=== PATIENT | female | born 1965 | race Caucasian/White ===

== ENCOUNTER 2016-10-27 10:33 | Emergency (ER) | payer BC ==
--- NOTE | 2016-10-27 10:42 | ER Document Report ---
ED Medical Screen (RME) - General Chief Complaint: Flank Pain Stated Complaint: URINARY SYMPTOMS Time seen by provider: 10:40 Mode of Arrival: Ambulatory Information source: Patient Notes: 51-year-old female presents to ED for urinary symptoms. She states she started with burning a couple days ago. She states she has a lot a urinary problems and does self-catheterization. Her last catheterization was last night was not able to get urine this morning. I have greeted and performed a rapid initial assessment of this patient. A comprehensive ED assessment and evaluation of the patient, analysis of test results and completion of medical decision making process will be conducted by an additional ED providers. TRAVEL OUTSIDE OF THE [place] IN LAST 30 DAYS: No - Related Data Allergies/Adverse Reactions: amoxicillin trihydrate [From Augmentin] Allergy (Severe, Verified 07/28/16 09:00 ) severe migraine latex [Latex] Allergy (Severe, Verified 07/28/16 09:00) Blisters Potassium Clavulanate * [From Augmentin] Allergy (Severe, Verified 07/28/16 09: 00) severe migraine magnesium sulfate [Magnesium Sulfate] Allergy (Intermediate, Verified 07/28/16 09:00) panic, nervousness, skin crawling dexamethasone [From Decadron] Allergy (Mild, Verified 07/28/16 09:00) burning in bladder, skin itching Iodinated Contrast Media - Oral and [IV Dye, Iodine Containing] Allergy (Mild, Verified 07/28/16 09:00) Hives prochlorperazine edisylate [From Compazine] Allergy (Mild, Verified 07/28/16 09: 00) makes heart race Vltrkhg-Ufj-Add Reductase Inhibitor Allergy (Mild, Verified 07/28/16 09:00) muscle pain and increased creatinine Fkuftmyq-1-UN8 Antimigraine Agents Allergy (Mild, Verified 07/28/16 09:00) makes heart race Past Medical History - Past Medical History Cardiac Medical History: Denies: Hx Coronary Artery Disease, Hx Heart Attack, Hx Hypertension Pulmonary Medical History: Reports: Hx Asthma - CHILD, Hx Pneumonia - HX Denies: Hx Bronchitis, Hx COPD Neurological Medical History: Reports: Hx Migraine. Denies: Hx Cerebrovascular Accident, Hx Seizures Renal/ Medical History: Reports: Hx Kidney Stones Musculoskeltal Medical History: Denies Hx Arthritis, Reports Hx Musculoskeletal Deformity, Reports Hx Musculoskeletal Trauma Traumatic Medical History: Reports: Hx Fractures Past Surgical History: Reports: Hx Appendectomy, Hx Section, Hx Genitourinary Surgery - bladder and ureter reimplantation, Hx Orthopedic Surgery - bunion - Immunizations Immunizations up to date: Yes Hx Diphtheria, Pertussis, Tetanus Vaccination: Yes
--- NOTE | 2016-10-27 11:02 | ER Document Report ---
ED General - General Chief Complaint: Flank Pain Stated Complaint: URINARY SYMPTOMS Time seen by provider: 10:59 Mode of Arrival: Ambulatory Information source: Patient Notes: 51-year-old female who reports a history of neurogenic bladder and self catheterizes 5-6 times a day. She has a machine at home that she uses to check her urine for UTIs and says this been reading positive for nitrites past 2 days. This morning she has been unable to catheterize herself and has considerable urinary urgency as well as bilateral lower abdominal pain and mid back pain which she says is consistent with what she's had in the past with urinary tract infections and pyelonephritis. She also reports that in the past she's had kidney stones to produced back pain similar to this. He reports her urologist is Dr. Solo Swann who previously was in [place] now is in [facility]. She reports she's been told in the future she continues to have problems he may have to have her bladder removed. She reports she was on 20 days of Bactrim over September but is not on antibiotics at the moment. She denies fever, chills, nausea, vomiting, chest pain, or syncope. Physical Exam: General: Alert, appears uncomfortable HEENT: Normocephalic. Atraumatic. PERRLA. Extraocular movements intact. Oropharynx clear. Neck: Supple. Non-tender. Respiratory: No respiratory distress. Clear and equal breath sounds bilaterally. Cardiovascular: Regular rate and rhythm. Abdominal: Normal Inspection. Soft, moderate bilateral lower abdominal and suprapubic tenderness. No distension. Normal Bowel Sounds. Back: Positive bilateral CVA tenderness. No deformity or step off. Extremities: Moves all four extremities. Upper extremities: Normal inspection. Non-tender. Normal color. Normal ROM. Normal temperature. Lower extremities: Normal inspection. Non-tender. No edema. Normal color. Normal ROM. Normal temperature. Neurological: Speech clear mentation normal patient reports decreased light touch sensation to the right hand Psychological: Normal affect. Normal Mood. Skin: Warm. Dry. Normal color. TRAVEL OUTSIDE OF THE [place] IN LAST 30 DAYS: No - Related Data Allergies/Adverse Reactions: amoxicillin trihydrate [From Augmentin] Allergy (Severe, Verified 07/28/16 09:00 ) severe migraine latex [Latex] Allergy (Severe, Verified 07/28/16 09:00) Blisters Potassium Clavulanate * [From Augmentin] Allergy (Severe, Verified 07/28/16 09: 00) severe migraine magnesium sulfate [Magnesium Sulfate] Allergy (Intermediate, Verified 07/28/16 09:00) panic, nervousness, skin crawling dexamethasone [From Decadron] Allergy (Mild, Verified 07/28/16 09:00) burning in bladder, skin itching Iodinated Contrast Media - Oral and [IV Dye, Iodine Containing] Allergy (Mild, Verified 07/28/16 09:00) Hives prochlorperazine edisylate [From Compazine] Allergy (Mild, Verified 07/28/16 09: 00) makes heart race Pplewmj-Efp-Ngq Reductase Inhibitor Allergy (Mild, Verified 07/28/16 09:00) muscle pain and increased creatinine Imerazdu-7-UU9 Antimigraine Agents Allergy (Mild, Verified 07/28/16 09:00) makes heart race Past Medical History - General Information source: Patient - Social History Smoking Status: Never Smoker Family History: Arthritis, CAD, DM, Hyperlipidemia, Hypertension, Malignancy Patient has suicidal ideation: No Patient has homicidal ideation: No - Past Medical History Cardiac Medical History: Denies: Hx Coronary Artery Disease, Hx Heart Attack, Hx Hypertension Pulmonary Medical History: Reports: Hx Asthma - CHILD, Hx Pneumonia - HX Denies: Hx Bronchitis, Hx COPD Neurological Medical History: Reports: Hx Migraine. Denies: Hx Cerebrovascular Accident, Hx Seizures Renal/ Medical History: Reports: Hx Kidney Stones. Denies: Hx Peritoneal Dialysis Musculoskeltal Medical History: Denies Hx Arthritis, Reports Hx Musculoskeletal Deformity, Reports Hx Musculoskeletal Trauma Traumatic Medical History: Reports: Hx Fractures Past Surgical History: Reports: Hx Appendectomy, Hx Section, Hx Genitourinary Surgery - bladder and ureter reimplantation, Hx Orthopedic Surgery - bunion - Immunizations Immunizations up to date: Yes Hx Diphtheria, Pertussis, Tetanus Vaccination: Yes Review of Systems - Review of Systems Constitutional: See HPI EENT: denies: Ear pain, Throat pain Cardiovascular: denies: Chest pain Respiratory: denies: Cough, Short of breath Gastrointestinal: See HPI Genitourinary: See HPI Musculoskeletal: See HPI Hematologic/Lymphatic: denies: Swollen glands Neurological/Psychological: denies: Weakness Physical Exam - Vital signs Vitals: Temp Pulse Resp BP Pulse Ox 98.7 F 125 H 20 135/109 H 99 10/27/16 10:39 10/27/16 10:39 10/27/16 10:39 10/27/16 10:39 10/27/16 10:39 Course - Re-evaluation Re-evalutation: 10/27/16 12:46 Patient has evidence for urinary tract infection but no evidence for sepsis or bacteremia. Patient reports Cipro and Bactrim of both worked well for UTIs in the past and says she just finished Bactrim [place] is Cipro for this. There is no hydronephrosis on CT scan and the punctate stones identified a believe her chronic finding her. She was discharged on Cipro 500 mg by mouth twice a day and instructed to follow with her urologist Dr. Swann within one week or return to emergency department for fever over 100.4 vomiting worse pain or other problems as well as other indications for admission. - Vital Signs Vital signs: Temp Pulse Resp BP Pulse Ox 98.7 F 123 H 20 135/109 H 99 10/27/16 10:43 10/27/16 10:43 10/27/16 10:43 10/27/16 10:43 10/27/16 10:43 - Laboratory Result Diagrams: 10/27/16 11:20 10/27/16 11:20 Laboratory results interpreted by me: 10/27/16 10/27/16 10/27/16 11:20 11:20 11:20 RDW 14.1 H Potassium 3.5 L Urine Blood SMALL H Urine Nitrite POSITIVE H Ur Leukocyte Esterase LARGE H - Diagnostic Test Radiology reviewed: Reports reviewed Discharge - Discharge Clinical Impression: Neurogenic bladder UTI (urinary tract infection) Qualifiers: Urinary tract infection type: acute cystitis Hematuria presence: with hematuria Qualified Code(s): N30.01 - Acute cystitis with hematuria Condition: Stable Disposition: HOME, SELF-CARE Additional Instructions: Urinary Tract Infection Your evaluation indicates that you have a urinary tract infection. This is due to germs growing in the bladder. This is a common problem. This infection usually responds quickly to antibiotics. Your antibiotic should be taken exactly as prescribed. Drink plenty of fluids -- three to four quarts a day. Occasionally, a bladder anesthetic will be prescribed to help stop the feeling of urgency until the antibiotic has a chance to clear the infection. This may cause your urine to be dark orange. Certain urine infections require a culture. If the doctor obtained a culture, the results will be back in two days. You should call to see if a change in treatment is needed. A repeat urinalysis after you finish treatment is often recommended. The physician will let you know if further testing is required. Call the doctor if you develop fever, chills, flank pain, inability to urinate, or blood in the urine. See your urologist within one week for recheck Return to emergency department for vomiting, fever over 100.4, or other problems Prescriptions: Ciprofloxacin HCl [Cipro 500 mg Tablet] 500 mg PO BID #20 tablet Referrals: NOVA SIMMS MD [Primary Care Provider] - Follow up as needed
[2016-10-27 11:51] LABS: ABSOLUTE EOSINOPHILS # (AUTO) 0.2 10^3/uL (0.0-0.6); ABSOLUTE LYMPHOCYTES (AUTO) 1.7 10^3/uL (0.5-4.7); ABSOLUTE MONOCYTES (AUTO) 0.5 10^3/uL (0.1-1.4); ABSOLUTE NEUT (AUTO) 5.9 10^3/uL (1.7-8.2); BASOPHILS % (AUTO) 0.5 % (0-2); EOSINOPHILS % (AUTO) 2.2 % (0-6); HEMATOCRIT 38.2 % (36.0-47.0); HEMOGLOBIN 12.3 g/dL (12.0-15.5); HGB HCT DIFFERENCE -1.3; MEAN CORPUSCULAR HEMOGLOBIN 28.8 pg (27.0-33.4); MEAN CORPUSCULAR HGB CONC 32.2 g/dL (32.0-36.0); MEAN CORPUSCULAR VOLUME 89 fl (80-97); MONOCYTES % (AUTO) 6.1 % (3-13); RED BLOOD COUNT 4.27 10^6/uL (3.72-5.28); RED CELL DISTRIBUTION WIDTH 14.1 % (11.5-14.0); SEGMENTED NEUTROPHILS % (AUTO) 71.2 % (42-78)
[2016-10-27 11:53] LABS: WHITE BLOOD COUNT 8.3 10^3/uL (4.0-10.5)
[2016-10-27] MEDS ORDERED: NORMAL SALINE 1000 ML 1,000 ML IV ONE (11:53)
[2016-10-27 12:00] LABS: APPEARANCE,URINE CLOUDY; BILIRUBIN,URINE NEGATIVE (NEGATIVE); GLUCOSE, URINE NEGATIVE (NEGATIVE); KETONES,URINE NEGATIVE (NEGATIVE); LEUKOCYTE ESTERASE,URINE LARGE (NEGATIVE); NITRITE,URINE POSITIVE (NEGATIVE); PROTEIN,URINE NEGATIVE (NEGATIVE); URINE SPECIFIC GRAVITY 1.004; UROBILINOGEN,URINE NEGATIVE mg/dL (<2.0)
[2016-10-27 12:14] LABS: ALANINE AMINOTRANSFERASE 36 U/L (9-52); ALBUMIN 4.9 g/dL (3.5-5.0); ALKALINE PHOSPHATASE 83 U/L (38-126); ANION GAP 15 (5-19); ASPARTATE AMINO TRANSFERASE 33 U/L (14-36); BILIRUBIN,TOTAL 0.4 mg/dL (0.2-1.3); BLOOD UREA NITROGEN 13 mg/dL (7-20); CARBON DIOXIDE 27 mmol/L (22-30); CHLORIDE 103 mmol/L (98-107); CREATININE RESULT 0.74 mg/dL (0.52-1.25); GLUCOSE 95 mg/dL (75-110); POTASSIUM 3.5 mmol/L (3.6-5.0); SODIUM 144.6 mmol/L (137-145); TOTAL PROTEIN 7.6 g/dL (6.3-8.2)
[2016-10-27 13:26] VITALS: BP 123/94
== END 2016-10-27 13:26 | disposition home or self-care (01) ==
LOC: ER 10:33
DX: N31.9 Neuromuscular dysfunction of bladder, unspecified (principal); N30.01 Acute cystitis with hematuria; R10.9 Unspecified abdominal pain
CPT/HCPCS: 36415; 74176; 80053; 81001; 83605; 84703; 85025; 87086; 87088; 87186; 99284

== ENCOUNTER 2016-11-10 19:40 | Emergency (ER) | payer BC ==
[2016-11-10] MEDS ORDERED: NORMAL SALINE 1000 ML 1,000 ML IV PRN (19:59)
--- NOTE | 2016-11-10 19:59 | ER Document Report ---
[id number] Information source: Patient Notes: 51-year-old female presents after syncopal episode just prior to arrival. Patient had been started on losartan, noted she has not been feeling well over the past 2 days that she's been taking the medication. EMS found patient hypotensive on arrival Patient admits to hip pain back pain neck pain TRAVEL OUTSIDE OF THE [place] IN LAST 30 DAYS: No - HPI Onset: Just prior to arrival Onset/Duration: Sudden Quality of pain: Achy Severity: Mild Pain Level: 1 Associated symptoms: Body/muscle aches, Other Exacerbated by: Movement Relieved by: Denies Similar symptoms previously: No Recently seen / treated by doctor: Yes - Related Data Allergies/Adverse Reactions: amoxicillin trihydrate [From Augmentin] Allergy (Severe, Verified 07/28/16 09:00 ) severe migraine latex [Latex] Allergy (Severe, Verified 07/28/16 09:00) Blisters Potassium Clavulanate * [From Augmentin] Allergy (Severe, Verified 07/28/16 09: 00) severe migraine magnesium sulfate [Magnesium Sulfate] Allergy (Intermediate, Verified 07/28/16 09:00) panic, nervousness, skin crawling dexamethasone [From Decadron] Allergy (Mild, Verified 07/28/16 09:00) burning in bladder, skin itching Iodinated Contrast Media - Oral and [IV Dye, Iodine Containing] Allergy (Mild, Verified 07/28/16 09:00) Hives prochlorperazine edisylate [From Compazine] Allergy (Mild, Verified 07/28/16 09: 00) makes heart race Xwegycg-Yvy-Zzz Reductase Inhibitor Allergy (Mild, Verified 07/28/16 09:00) muscle pain and increased creatinine Kmusotdz-4-PA5 Antimigraine Agents Allergy (Mild, Verified 07/28/16 09:00) makes heart race Past Medical History - Social History Smoking Status: Never Smoker Cigarette use (# per day): No Chew tobacco use (# tins/day): No Smoking Education Provided: No Family History: Arthritis, CAD, DM, Hyperlipidemia, Hypertension, Malignancy - Past Medical History Cardiac Medical History: Denies: Hx Coronary Artery Disease, Hx Heart Attack, Hx Hypertension Pulmonary Medical History: Reports: Hx Asthma - CHILD, Hx Pneumonia - HX Denies: Hx Bronchitis, Hx COPD Neurological Medical History: Reports: Hx Migraine. Denies: Hx Cerebrovascular Accident, Hx Seizures Renal/ Medical History: Reports: Hx Kidney Stones. Denies: Hx Peritoneal Dialysis Musculoskeltal Medical History: Denies Hx Arthritis, Reports Hx Musculoskeletal Deformity, Reports Hx Musculoskeletal Trauma Traumatic Medical History: Reports: Hx Fractures Past Surgical History: Reports: Hx Appendectomy, Hx Section, Hx Genitourinary Surgery - bladder and ureter reimplantation, Hx Orthopedic Surgery - bunion - Immunizations Immunizations up to date: Yes Hx Diphtheria, Pertussis, Tetanus Vaccination: Yes Review of Systems - Review of Systems Notes: REVIEW OF SYSTEMS: CONSTITUTIONAL : Denies fever, chills, or sweats. Denies recent illness. EENT: Denies eye, ear, throat, or mouth pain or symptoms. Denies nasal or sinus congestion or discharge. Denies throat, tongue, or mouth swelling or difficulty swallowing. CARDIOVASCULAR: Denies chest pain. Denies palpitations or racing or irregular heart beat. Denies ankle edema. RESPIRATORY: Denies cough, cold, or chest congestion. Denies shortness of breath, difficulty breathing, or wheezing. GASTROINTESTINAL: Denies abdominal pain or distention. Denies nausea, vomiting , or diarrhea. Denies blood in vomitus, stools, or per rectum. Denies black, tarry stools. Denies constipation. GENITOURINARY: Denies difficulty urinating, painful urination, burning, frequency, blood in urine, or discharge. FEMALE GENITOURINARY: Denies vaginal bleeding, heavy or abnormal periods, irregular periods. Denies vaginal discharge or odor. MUSCULOSKELETAL: Admits to neck back and hip pain SKIN: Denies rash, lesions or sores. HEMATOLOGIC : Denies easy bruising or bleeding. LYMPHATIC: Denies swollen, enlarged glands. NEUROLOGICAL: Admits to syncope PSYCHIATRIC: Denies anxiety or stress. Denies depression, suicidal ideation, or homicidal ideation. ALL OTHER SYSTEMS REVIEWED AND NEGATIVE. Dictation was performed using [employer] voice recognition software PHYSICAL EXAMINATION: GENERAL: Well-appearing, well-nourished and in no acute distress. HEAD: Atraumatic, normocephalic. EYES: Pupils equal round and reactive to light, extraocular movements intact, conjunctiva are normal. ENT: Nares patent, oropharynx clear without exudates. Moist mucous membranes. NECK: Normal range of motion, supple without lymphadenopathy LUNGS: Breath sounds clear to auscultation bilaterally and equal. No wheezes rales or rhonchi. HEART: Regular rate and rhythm without murmurs ABDOMEN: Soft, nontender, nondistended abdomen. No guarding, no rebound. No masses appreciated. Female : deferred Musculoskeletal: No step-off no deformity noted tenderness and the T 10-11 region NEUROLOGICAL: Cranial nerves grossly intact. Normal speech, normal gait. Normal sensory, motor exams PSYCH: Normal mood, normal affect. SKIN: Warm, Dry, normal turgor, no rashes or lesions noted. Course - Re-evaluation Re-evalutation: 11/10/16 21:28 Imaging has been ordered, patient otherwise appears well, she has been bolused fluids and I believe her issue is secondary to her losartan which I have insisted that she stop 11/11/16 00:36 ct result is consistent with a T12 compression fracture, patient will be given orthopedic follow-up and pain control Patient will require MRI at some point to evaluate for the thoracic and lumbar spines and family has been made very aware of this 11/11/16 01:17 After performing a Medical Screening Examination, I estimate there is LOW risk for EXPANDING OR RUPTURED ABDOMINAL AORTIC ANEURYSM, CAUDA EQUINA SYNDROME, EPIDURAL MASS LESION, or HERNIATED DISK CAUSING SEVERE SPINAL STENOSIS, thus I consider the discharge disposition reasonable. The patient and I have discussed the diagnosis and risks, and we agree with discharging home and close follow-up. We also discussed returning to the Emergency Department immediately if new or worsening symptoms occur with the understanding that symptoms and presentations can change. We have discussed the symptoms which are most concerning (e.g., saddle anesthesia, urinary or bowel incontinence or retention , changing or worsening pain) that necessitate immediate return. 11/11/16 01:19 - Laboratory Result Diagrams: 11/10/16 23:15 11/10/16 23:15 Laboratory results interpreted by me: 11/10/16 11/10/16 11/10/16 23:14 23:15 23:15 Hgb 11.7 L Hct 35.3 L Sodium 145.1 H Est GFR (Non-Af Amer) 56 L POC Glucose 111 H - Diagnostic Test Radiology reviewed: Image reviewed, Reports reviewed Discharge - Discharge Clinical Impression: Syncope and collapse Hypotension Qualifiers: Hypotension type: unspecified hypotension type Qualified Code(s): I95.9 - Hypotension, unspecified T12 compression fracture Qualifiers: Encounter type: initial encounter Qualified Code(s): M48.54XA - Collapsed vertebra, not elsewhere classified, thoracic region, initial encounter for fracture Condition: Stable Disposition: HOME, SELF-CARE Instructions: Compression Fracture of the Spine ([facility]) Additional Instructions: Please follow-up with your physicians for reevaluation of the compression fracture including possible MRI imaging of the thoracic and lumbar spines for further evaluation Prescriptions: Hydromorphone HCl [Dilaudid 2 mg Tablet] 2 mg PO Q4HP PRN #30 tablet PRN Reason: Referrals: LNIDA JOHN PA [Primary Care Provider] - Follow up as needed GWYN ESQUIVEL MD [ACTIVE STAFF] - Follow up tomorrow
[2016-11-10] MEDS ORDERED: MORPHINE SULFATE 10 MG/ML INJ IV ONE ×2 (20:27→23:09)
[2016-11-10 23:15] LABS: APPEARANCE,URINE CLEAR; BILIRUBIN,URINE NEGATIVE (NEGATIVE); GLUCOSE, URINE NEGATIVE (NEGATIVE); KETONES,URINE NEGATIVE (NEGATIVE); LEUKOCYTE ESTERASE,URINE NEGATIVE (NEGATIVE); NITRITE,URINE NEGATIVE (NEGATIVE); PROTEIN,URINE NEGATIVE (NEGATIVE); URINE SPECIFIC GRAVITY 1.006; UROBILINOGEN,URINE NEGATIVE mg/dL (<2.0)
[2016-11-10 23:54] LABS: ABSOLUTE EOSINOPHILS # (AUTO) 0.2 10^3/uL (0.0-0.6); ABSOLUTE LYMPHOCYTES (AUTO) 1.2 10^3/uL (0.5-4.7); ABSOLUTE MONOCYTES (AUTO) 0.3 10^3/uL (0.1-1.4); ABSOLUTE NEUT (AUTO) 3.3 10^3/uL (1.7-8.2); BASOPHILS % (AUTO) 0.6 % (0-2); EOSINOPHILS % (AUTO) 3.4 % (0-6); HEMATOCRIT 35.3 % (36.0-47.0); HEMOGLOBIN 11.7 g/dL (12.0-15.5); HGB HCT DIFFERENCE -0.2; LYMPHOCYTES % (AUTO) 24.8 % (13-45); MEAN CORPUSCULAR HEMOGLOBIN 29.5 pg (27.0-33.4); MEAN CORPUSCULAR HGB CONC 33.1 g/dL (32.0-36.0); MEAN CORPUSCULAR VOLUME 89 fl (80-97); MONOCYTES % (AUTO) 6.1 % (3-13); RED BLOOD COUNT 3.97 10^6/uL (3.72-5.28); RED CELL DISTRIBUTION WIDTH 13.5 % (11.5-14.0); SEGMENTED NEUTROPHILS % (AUTO) 65.1 % (42-78)
[2016-11-10 23:56] LABS: VENOUS BLOOD BASE EXCESS 1.6 mmol/L; VENOUS BLOOD HCO3 28.8 mmol/L (20-32); VENOUS BLOOD PCO2 57.2 mmHg (35-63); VENOUS BLOOD PH 7.32 (7.30-7.42)
[2016-11-11] LABS: PROTHROMBIN TIME 12.7 SEC (11.4-15.4)
[2016-11-11 00:14] LABS: ALANINE AMINOTRANSFERASE 31 U/L (9-52); ALBUMIN 4.1 g/dL (3.5-5.0); ALKALINE PHOSPHATASE 91 U/L (38-126); ANION GAP 10 (5-19); ASPARTATE AMINO TRANSFERASE 34 U/L (14-36); BILIRUBIN,TOTAL 0.3 mg/dL (0.2-1.3); BLOOD UREA NITROGEN 14 mg/dL (7-20); CALCIUM 9.6 mg/dL (8.4-10.2); CARBON DIOXIDE 28 mmol/L (22-30); CHLORIDE 107 mmol/L (98-107); CREATININE RESULT 1.05 mg/dL (0.52-1.25); GLUCOSE 98 mg/dL (75-110); POTASSIUM 4.2 mmol/L (3.6-5.0); SODIUM 145.1 mmol/L (137-145); TOTAL PROTEIN 6.6 g/dL (6.3-8.2)
[2016-11-11] MEDS ORDERED: HYDROMORPHONE HCL INJ/PF 2 MG/ML AMPULE IV ONE (00:38)
[2016-11-11] MEDS ORDERED: DIPHENHYDRAMINE HCL 50 MG/ML VIAL IV ONE (00:42)
[2016-11-11 02:17] VITALS: BP 94/52
--- NOTE | 2016-11-11 08:10 | EKG REPORT ---
SEVERITY:- BORDERLINE ECG - SINUS RHYTHM BORDERLINE PROLONGED QT INTERVAL : Confirmed by: Dwayne Hernandez MD 11-Nov-2016 08:09:45
== END 2016-11-11 01:14 | disposition home or self-care (01) ==
LOC: ER 19:40
DX: S22.089A Unspecified fracture of T11-T12 vertebra, initial encounter for closed fracture (principal); W19.XXXA Unspecified fall, initial encounter; Y93.9 Activity, unspecified; Y92.000 Kitchen of unspecified non-institutional (private) residence as the place of occurrence of the external cause; I95.9 Hypotension, unspecified; R55 Syncope and collapse; M25.559 Pain in unspecified hip; M54.9 Dorsalgia, unspecified; M54.2 Cervicalgia; Z88.0 Allergy status to penicillin; Z91.040 Latex allergy status; Z91.041 Radiographic dye allergy status; Z88.8 Allergy status to other drugs, medicaments and biological substances; Z88.6 Allergy status to analgesic agent
CPT/HCPCS: 93005; 96376; 99284; 96361; 51701; 96374; 96375; 36415; 87040; 87086; 82962; 85025; 85610; 87077; 80053; 81001; 87186; 82803; 83605; 71010; 73522; 70450; 72125; 72128; 93010; J1200; J2270; J1170; J7030

== ENCOUNTER → 2016-11-27 | Outpatient (CLI) | payer BC | LOC: RAD 09:50 | PROVIDERS: ATTEND Pain Medicine Interventional Pain Medicine | DX: S22.080A Wedge compression fracture of T11-T12 vertebra, initial encounter for closed fracture (principal); X58.XXXA Exposure to other specified factors, initial encounter; Y93.9 Activity, unspecified; Y92.9 Unspecified place or not applicable; M54.16 Radiculopathy, lumbar region; N39.0 Urinary tract infection, site not specified | CPT/HCPCS: 72146; 72148; 87086 ==

== ENCOUNTER 2016-12-23 10:58 | Day surgery (SDC) | payer BC ==
[2016-12-16 11:47] LABS: PROTHROMBIN TIME 12.9 SEC (11.4-15.4)
[2016-12-16 11:48] LABS: PARTIAL THROMBOPLASTIN TIME 26.8 SEC (23.5-35.8)
[2016-12-16 11:48] LABS: APPEARANCE,URINE SLIGHTLY-CLOUDY; BILIRUBIN,URINE NEGATIVE (NEGATIVE); GLUCOSE, URINE NEGATIVE (NEGATIVE); KETONES,URINE NEGATIVE (NEGATIVE); LEUKOCYTE ESTERASE,URINE LARGE (NEGATIVE); NITRITE,URINE NEGATIVE (NEGATIVE); PROTEIN,URINE NEGATIVE (NEGATIVE); URINE SPECIFIC GRAVITY 1.011; UROBILINOGEN,URINE NEGATIVE mg/dL (<2.0)
[2016-12-16 11:50] LABS: HEMATOCRIT 39.7 % (36.0-47.0); HEMOGLOBIN 13.3 g/dL (12.0-15.5); HGB HCT DIFFERENCE 0.2; MEAN CORPUSCULAR HEMOGLOBIN 29.6 pg (27.0-33.4); MEAN CORPUSCULAR HGB CONC 33.6 g/dL (32.0-36.0); MEAN CORPUSCULAR VOLUME 88 fl (80-97); WHITE BLOOD COUNT 4.7 10^3/uL (4.0-10.5)
[~2016-12-23 10:58] MED LIST: CLINDAMYCIN 600 MG/D5W RTU 600 MG/50 ML RTUPB IV PRN; LACTATED RINGERS 1000 ML IV PRN; LIDOCAINE 0.5% INJ-PF (5 MG/ML) 50 ML SDV SUBCUT PRN; LIDOCAINE 1% INJ-PF (10 MG/ML) 30 ML SDV ONE
[2016-12-23] MEDS ORDERED: MIDAZOLAM 2 MG/2 ML INJ ONE (12:30)
[2016-12-23] MEDS ORDERED: PROPOFOL INJ 200 MG/20 ML VIAL IV ONE (12:30)
[2016-12-23] MEDS ORDERED: MORPHINE SULFATE 10 MG/ML INJ ONE (12:31)
[2016-12-23] MEDS ORDERED: DIPHENHYDRAMINE HCL 50 MG/ML VIAL ONE (12:35)
[2016-12-23] MEDS: FENTANYL CITRATE INJ/PF 100 MCG/2 ML AMPUL ONE ×2 (13:59→14:05)
[2016-12-23] MEDS ORDERED: ONDANSETRON HCL INJ/PF 4 MG/2 ML SDV ONE (14:04)
[2016-12-23] MEDS: ONDANSETRON HCL INJ/PF 4 MG/2 ML SDV IV PRN ×3 (14:04→15:25)
[2016-12-23] MEDS ORDERED: MEPERIDINE HCL/PF INJ 25 MG/1 ML DISP.SYRIN IV PRN (14:08)
[2016-12-23] MEDS ORDERED: FENTANYL CITRATE INJ/PF 100 MCG/2 ML AMPUL IV PRN ×3 (14:08)
[2016-12-23] MEDS ORDERED: MORPHINE SULFATE 10 MG/ML INJ IV PRN (14:08)
[2016-12-23] MEDS ORDERED: DIPHENHYDRAMINE HCL 50 MG/ML VIAL IV PRN (14:08)
[2016-12-23] MEDS ORDERED: CLINDAMYCIN 600 MG/D5W RTU 600 MG/50 ML RTUPB IV ONE (14:21)
--- NOTE | 2016-12-23 14:27 | OPERATIVE REPORT E ---
Operative Report NAME: GISEL SO : 1965 AGE: 51Y DATE OF SURGERY: 12/23/2016 ROOM: PREOPERATIVE DIAGNOSIS: Vertebral compression fracture of T12 vertebral body. POSTOPERATIVE DIAGNOSIS: Vertebral compression fracture of T12 vertebral body. PROCEDURE PERFORMED: Percutaneous balloon kyphoplasty of the T12 vertebral body. PRIMARY SURGEON: EFRAIN RAMSAY M.D. PREOPERATIVE ANTIBIOTICS: Clindamycin 600 mg given perioperatively. INTRAVENOUS FLUIDS: 500 mL balanced crystalloid solution given. ESTIMATED BLOOD LOSS: None. FINDINGS: Excellent spread of methylmethacrylate cement throughout the T12 vertebral body without extravasation. SPECIMENS REMOVED: None. ANESTHESIA: Local with sedation. OPERATIVE INDICATIONS: The patient is a 51-year-old female who experienced a traumatic T12 compression fracture status post fall. The patient had failed conservative therapy with bracing and pain medications. She opted to proceed with kyphoplasty procedure. All risks and benefits of the procedure were explained in detail to the patient, including, but not limited to, bleeding, bruising, infection, injuries to nerve, artery or vein, loss of bowel or bladder function, paralysis and potentially even . The patient expressed understanding. OPERATIVE DETAIL: The patient was accompanied by anesthesia staff to the operating room where she was positioned in prone position. All pressure points were checked and padded. Standard ASA lines and monitors were applied. Clindamycin 600 mg was given perioperatively. The patient was prepped with chlorhexidine gluconate solution and draped in sterile fashion using Ioban drape. Notably, 2 C-arms were draped into the operative field in sterile fashion, one in AP angulation and the other in lateral angulation. The T12 vertebral body was identified under AP and lateral fluoroscopic guidance. The skin was marked slightly lateral to the right pedicle at T12 and the skin was anesthetized with 1% buffered lidocaine. Deeper tissues were additionally infiltrated using a 3.5-inch spinal needle to make contact with the right pedicle and deeper tissues were infiltrated with 1% buffered lidocaine as well. Incision was made using a 15-blade scalpel. Subsequently, the beveled-tip trocar provided by the Kyphon kit was advanced under intermittent AP and lateral fluoroscopic guidance to contact the lateral margin of the T12 pedicle on the right side. Once purchase was obtained in the bone the beveled tip was advanced using frequent AP and lateral fluoroscopic checks to ensure appropriate angulation of the trocar. Once the trocar was appropriately medialized the trocar entered into the vertebral body into the posterior wall. Subsequently, a drilling tool was used to go to the anterior margin of the vertebral body, taking great care to avoid any violation of the anteromedial borders. A balloon was inserted through the trocar. Notably, there was not substantial inflation of the balloon despite pressures to 400 psi until a few minutes after balloon was seated in this position. Attention was then turned to the opposite pedicle where the procedure was performed in the exact same fashion with the exception that a beveled tip was utilized to medialize the trocar mid pedicle. Once both balloons were inserted in place, inflated to appropriately 300 PSI. The cement was mixed on the back table. Balloons were deflated and removed and the introducer kit was placed through the right-sided trocar. The cement was injected in small increments to ensure no extravasation or intravascular uptake. Notably, 3 mL of methylmethacrylate cement was injected through the right trocar. Attention was then turned to the left trocar where 2 mL of methylmethacrylate cement was injected for a total of 5 mL of bone cement. There was excellent spread with interdigitation throughout all aspects of the vertebral body and no extravasation of cement. The introducers were removed and the beveled marty-tipped introducers were replaced into the trocars, and the trocars were allowed to sit for 2 minutes. Subsequently, the trocars were removed and no posterior extravasation of cement noted. The skin was cleansed and bandages applied. The patient tolerated the procedure well and was accompanied to the PACU in stable condition. The patient will follow up with [facility] tomorrow for wound check. DICTATING PHYSICIAN: EFRAIN RAMSAY M.D. [id number] PHY#: [id number] ID: [id number] JOB#: [id number] ACCT: [id number] cc:EFRAIN RAMSAY M.D. > MTDD
[2016-12-23] MEDS: MORPHINE SULFATE 10 MG/ML INJ ONE ×2 (14:28→14:30)
[2016-12-23] MEDS ORDERED: OXYCODONE-ACETAMINOPHEN 5-325 MG TABLET PO PRN (14:29)
[2016-12-23] MEDS ORDERED: PROMETHAZINE HCL INJ 25 MG/1 ML VIAL IV PRN (14:30)
[2016-12-23 16:38] VITALS: BP 118/79
== END 2016-12-23 16:25 | disposition home or self-care (01) ==
LOC: OROUT 10:58
PROVIDERS: ATTEND Pain Medicine Interventional Pain Medicine
PROC: 0PU43JZ Supplement Thoracic Vertebra with Synthetic Substitute, Percutaneous Approach (ICD-10-PCS; 2016-12-23)
PROC: 0PS43ZZ Reposition Thoracic Vertebra, Percutaneous Approach (ICD-10-PCS; principal; 2016-12-23 13:00)
DX: S22.080A Wedge compression fracture of T11-T12 vertebra, initial encounter for closed fracture (principal); X58.XXXA Exposure to other specified factors, initial encounter; G89.4 Chronic pain syndrome; G43.019 Migraine without aura, intractable, without status migrainosus; E55.9 Vitamin D deficiency, unspecified; N20.2 Calculus of kidney with calculus of ureter; N30.10 Interstitial cystitis (chronic) without hematuria; G47.00 Insomnia, unspecified; Z79.51 Long term (current) use of inhaled steroids; Z79.899 Other long term (current) drug therapy; Z79.891 Long term (current) use of opiate analgesic
CPT/HCPCS: 36415; 85027; 85610; 85730; 81025; 81001; 72070; 22513; J2250; J1200; J3010; J3490; J2270; J2405; J2704; 1936

== ENCOUNTER 2016-12-24 15:34 | Emergency (ER) | payer BC ==
--- NOTE | 2016-12-24 15:46 | ER Document Report ---
ED Medical Screen (RME) - General Stated Complaint: POST OP COMPLICATIONS Notes: vertebral surgery yesterday cyphoplasty, no urine output since yesterday. has morales cath in place. low grade fever. bilat flank pain. Dr Rodriges pt pale, hypotensive TRAVEL OUTSIDE OF THE [place] IN LAST 30 DAYS: No - Related Data Allergies/Adverse Reactions: adhesive tape Allergy (Severe, Verified 12/23/16 11:55) Blisters amoxicillin trihydrate [From Augmentin] Allergy (Severe, Verified 12/23/16 11:55 ) severe migraine ezetimibe [From Vytorin] Allergy (Severe, Verified 12/23/16 11:55) muscle pain,increased creatine latex [Latex] Allergy (Severe, Verified 12/23/16 11:55) Blisters Potassium Clavulanate * [From Augmentin] Allergy (Severe, Verified 12/23/16 11: 55) severe migraine simvastatin [From Vytorin] Allergy (Severe, Verified 12/23/16 11:55) muscle pain,increased creatine magnesium sulfate [Magnesium Sulfate] Allergy (Intermediate, Verified 12/23/16 11:55) panic, nervousness, skin crawling dexamethasone [From Decadron] Allergy (Mild, Verified 12/23/16 11:55) burning in bladder, skin itching Iodinated Contrast Media - Oral and [IV Dye, Iodine Containing] Allergy (Mild, Verified 12/23/16 11:55) Hives prochlorperazine edisylate [From Compazine] Allergy (Mild, Verified 12/23/16 11: 55) makes heart race Bgdxniu-Qkn-Mrn Reductase Inhibitor Allergy (Mild, Verified 07/28/16 09:00) muscle pain and increased creatinine Dwhzrvln-7-JM7 Antimigraine Agents Allergy (Mild, Verified 07/28/16 09:00) makes heart race Past Medical History - Past Medical History Cardiac Medical History: Reports: Hx Hypertension - on meds Denies: Hx Coronary Artery Disease, Hx Heart Attack Pulmonary Medical History: Reports: Hx Asthma - CHILD, Hx Pneumonia - HX Denies: Hx Bronchitis, Hx COPD Neurological Medical History: Reports: Hx Migraine. Denies: Hx Cerebrovascular Accident, Hx Seizures Renal/ Medical History: Reports: Hx Kidney Stones. Denies: Hx Peritoneal Dialysis Musculoskeltal Medical History: Reports Hx Arthritis - rheumatoid, Reports Hx Musculoskeletal Deformity, Reports Hx Musculoskeletal Trauma Traumatic Medical History: Reports: Hx Fractures Past Surgical History: Reports: Hx Appendectomy, Hx Section, Hx Genitourinary Surgery - bladder and ureter reimplantation, Hx Orthopedic Surgery - bunion - Immunizations Immunizations up to date: Yes Hx Diphtheria, Pertussis, Tetanus Vaccination: Yes
--- NOTE | 2016-12-24 16:10 | ER Document Report ---
ED General - General Mode of Arrival: Wheelchair Information source: Patient TRAVEL OUTSIDE OF THE [place]. IN LAST 30 DAYS: No - HPI Patient complains to provider of: Decreased Kidney Function Onset: Yesterday Onset/Duration: Sudden Associated symptoms: Fever - low-grade, Headache, Other - Flank Pain. denies: Diarrhea, Nausea, Vomiting <CORNELIUS CHAU - Last Filed: 12/24/16 16:45> <JESSICA CAMPOS - Last Filed: 12/24/16 18:53> - General Chief Complaint: Post Surgical Pain Stated Complaint: POST OP COMPLICATIONS Notes: Patient is a 51-year-old female presenting to the emergency department after kyphoplasty at 1 PM yesterday with concerns of decreased kidney function. Patient was seen at Dr. Rodriges's office today where she had low blood pressure, and was sent here to the emergency department. Patient states that she is normally hypertensive. Patient has a Boyer catheter in right now, and states that the urine present in the bag (400 mL) is all that she has produced since noon yesterday. Patient admits to low-grade fever, dizziness, distended abdomen , headache, and flank pain. Patient denies any nausea vomiting or diarrhea. Patient denies pain in her back now, but has new onset of flank pain bilaterally. (CORNELIUS CHAU) - Related Data Allergies/Adverse Reactions: adhesive tape Allergy (Severe, Verified 12/24/16 15:42) Blisters amoxicillin trihydrate [From Augmentin] Allergy (Severe, Verified 12/24/16 15:42 ) severe migraine ezetimibe [From Vytorin] Allergy (Severe, Verified 12/24/16 15:42) muscle pain,increased creatine latex [Latex] Allergy (Severe, Verified 12/24/16 15:42) Blisters Potassium Clavulanate * [From Augmentin] Allergy (Severe, Verified 12/24/16 15: 42) severe migraine simvastatin [From Vytorin] Allergy (Severe, Verified 12/23/16 11:55) muscle pain,increased creatine magnesium sulfate [Magnesium Sulfate] Allergy (Intermediate, Verified 12/24/16 15:42) panic, nervousness, skin crawling dexamethasone [From Decadron] Allergy (Mild, Verified 12/23/16 11:55) burning in bladder, skin itching Iodinated Contrast Media - Oral and [IV Dye, Iodine Containing] Allergy (Mild, Verified 12/24/16 15:42) Hives prochlorperazine edisylate [From Compazine] Allergy (Mild, Verified 12/24/16 15: 42) makes heart race Ttcisjd-Bzq-Eal Reductase Inhibitor Allergy (Mild, Verified 07/28/16 09:00) muscle pain and increased creatinine Heqmrioe-5-MK5 Antimigraine Agents Allergy (Mild, Verified 07/28/16 09:00) makes heart race valsartan Allergy (Verified 12/24/16 15:42) Past Medical History - General Information source: Patient - Social History Smoking Status: Never Smoker Chew tobacco use (# tins/day): No Frequency of alcohol use: None Drug Abuse: None Family History: Arthritis, CAD, DM, Hyperlipidemia, Hypertension, Malignancy Patient has suicidal ideation: No Patient has homicidal ideation: No - Past Medical History Cardiac Medical History: Reports: Hx Hypertension - on meds Denies: Hx Coronary Artery Disease, Hx Heart Attack Pulmonary Medical History: Reports: Hx Asthma - as child, Hx Pneumonia Denies: Hx Bronchitis, Hx COPD Neurological Medical History: Reports: Hx Migraine. Denies: Hx Cerebrovascular Accident, Hx Seizures Renal/ Medical History: Reports: Hx Kidney Stones. Denies: Hx Peritoneal Dialysis Musculoskeltal Medical History: Reports Hx Arthritis - rheumatoid, Reports Hx Musculoskeletal Deformity, Reports Hx Musculoskeletal Trauma Traumatic Medical History: Reports: Hx Fractures Past Surgical History: Reports: Hx Appendectomy, Hx Section, Hx Genitourinary Surgery - bladder and ureter reimplantation, Hx Orthopedic Surgery - bunion, Other - Kyphoplasty 12/2016 - Immunizations Immunizations up to date: Yes Hx Diphtheria, Pertussis, Tetanus Vaccination: Yes <CORNELIUS CHAU - Last Filed: 12/24/16 16:45> Review of Systems - Review of Systems Constitutional: See HPI, Fever - subjective, low-grade EENT: No symptoms reported Cardiovascular: See HPI, Dizziness, Other - Hypotensive Respiratory: No symptoms reported Gastrointestinal: See HPI, Abdomen distended. denies: Diarrhea, Nausea, Vomiting Genitourinary: See HPI, Flank pain, Urgency, Retention. denies: Hematuria Female Genitourinary: No symptoms reported Musculoskeletal: See HPI. denies: Back pain Skin: No symptoms reported Hematologic/Lymphatic: No symptoms reported Neurological/Psychological: See HPI, Headaches -: Yes All other systems reviewed and negative <CORNELIUS CHAU - Last Filed: 12/24/16 16:45> Physical Exam - Vital signs Interpretation: Hypotensive - General General appearance: Alert - HEENT Head: Normocephalic, Atraumatic Eyes: Normal Pupils: PERRL - Respiratory Respiratory status: No respiratory distress Chest status: Nontender Breath sounds: Normal Chest palpation: Normal - Cardiovascular Rhythm: Regular Heart sounds: Normal auscultation Murmur: No - Abdominal Distension: Distended Bowel sounds: Normal Tenderness: Tender - LLQ tenderness to palpation - Back Back: CVA tenderness - Bilateral - Extremities General upper extremity: Normal inspection General lower extremity: Normal inspection - Neurological Neuro grossly intact: Yes Cognition: Normal Edith Coma Scale Eye Opening: Spontaneous Edith Coma Scale Verbal: Oriented [place] Coma Scale Motor: Obeys Commands [place] Coma Scale Total: 15 Speech: Normal - Psychological Associated symptoms: Normal affect, Normal mood - Skin Skin Temperature: Warm Skin Moisture: Dry Skin Color: Pale <CORNELIUS CHAU - Last Filed: 12/24/16 16:45> <JESSICA CAMPOS - Last Filed: 12/24/16 18:53> - Vital signs Vitals: Temp Pulse Resp BP Pulse Ox 97.5 F 67 16 93/58 L 99 12/24/16 15:39 12/24/16 15:39 12/24/16 15:39 12/24/16 15:39 12/24/16 15:39 - Genitourinary Notes: Indwelling Boyer containing mildly concentrated yellow urine. (CORNELIUS CHAU) Course - Laboratory Result Diagrams: 12/24/16 15:50 12/24/16 15:50 <CORNELIUS CHAU - Last Filed: 12/24/16 16:45> - Laboratory Result Diagrams: 12/24/16 15:50 12/24/16 15:50 - Diagnostic Test Radiology reviewed: Reports reviewed - CT: NAD, Nephrolithiasis <JESSICA CAMPOS - Last Filed: 12/24/16 18:53> - Re-evaluation Re-evalutation: 12/24/16 18:48 The patient appears non-toxic and well hydrated now. There are no signs of life threatening or serious infection at this time and she is currently on Bactrim and Cipro so she will continue this while we await the Urine Culture. The patient has been instructed to return if she seems to be getting more seriously ill in any way. I discussed findings with the patient and family at her request and they are comfortable with discharge though we have a follow-up blood pressure pending at this point (JESSICA CAMPOS) - Vital Signs Vital signs: Temp Pulse Resp BP Pulse Ox 97.5 F 67 18 93/58 L 99 12/24/16 15:39 12/24/16 15:39 12/24/16 16:15 12/24/16 15:39 12/24/16 15:39 - Laboratory Laboratory results interpreted by me: 12/24/16 12/24/16 12/24/16 15:50 15:50 16:25 Hgb 10.9 L Hct 33.1 L Seg Neutrophils % 38.5 L Lymphocytes % 49.7 H Potassium 3.4 L Glucose 120 H Urine Protein 30 H Ur Leukocyte Esterase LARGE H Discharge <CORNELIUS CHAU - Last Filed: 12/24/16 16:45> <JESSICA CAMPOS - Last Filed: 12/24/16 18:53> - Discharge Clinical Impression: Flank pain, Hypotension Condition: Good Disposition: HOME, SELF-CARE Instructions: Abdominal Pain ([facility]) Additional Instructions: Please return if you feel you're worsening at any time, temperature greater than 100.5. Ensure you stay well-hydrated and push non-caffeinated fluids. Finish your antibiotics as directed and get close follow-up in the next 1-2 days as well on the urine culture. Referrals: NOVA SIMMS MD [Primary Care Provider] - Follow up tomorrow Scribe Documentation - Scribe Written by Heidy:: Cornelius Chau 12/24/2016 1610 acting as scribe for :: Alida <CORNELIUS CHAU - Last Filed: 12/24/16 16:45>
[2016-12-24 16:11] LABS: ABSOLUTE EOSINOPHILS # (AUTO) 0.3 10^3/uL (0.0-0.6); ABSOLUTE LYMPHOCYTES (AUTO) 2.5 10^3/uL (0.5-4.7); ABSOLUTE MONOCYTES (AUTO) 0.3 10^3/uL (0.1-1.4); ABSOLUTE NEUT (AUTO) 1.9 10^3/uL (1.7-8.2); BASOPHILS % (AUTO) 0.7 % (0-2); EOSINOPHILS % (AUTO) 5.1 % (0-6); HEMATOCRIT 33.1 % (36.0-47.0); HEMOGLOBIN 10.9 g/dL (12.0-15.5); HGB HCT DIFFERENCE -0.4; LYMPHOCYTES % (AUTO) 49.7 % (13-45); MEAN CORPUSCULAR HEMOGLOBIN 29.2 pg (27.0-33.4); MEAN CORPUSCULAR VOLUME 89 fl (80-97); RED BLOOD COUNT 3.74 10^6/uL (3.72-5.28); RED CELL DISTRIBUTION WIDTH 13.2 % (11.5-14.0); SEGMENTED NEUTROPHILS % (AUTO) 38.5 % (42-78)
[2016-12-24] MEDS ORDERED: NORMAL SALINE 1000 ML 1,000 ML IV ONE (16:24)
[2016-12-24 16:30] LABS: ALANINE AMINOTRANSFERASE 21 U/L (9-52); ALBUMIN 3.9 g/dL (3.5-5.0); ALKALINE PHOSPHATASE 73 U/L (38-126); ANION GAP 10 (5-19); ASPARTATE AMINO TRANSFERASE 22 U/L (14-36); BILIRUBIN,DIRECT 0.1 mg/dL (0.0-0.4); BILIRUBIN,TOTAL 0.3 mg/dL (0.2-1.3); BLOOD UREA NITROGEN 10 mg/dL (7-20); CALCIUM 9.2 mg/dL (8.4-10.2); CARBON DIOXIDE 26 mmol/L (22-30); CHLORIDE 104 mmol/L (98-107); CREATININE RESULT 0.83 mg/dL (0.52-1.25); GLUCOSE 120 mg/dL (75-110); POTASSIUM 3.4 mmol/L (3.6-5.0); SODIUM 139.8 mmol/L (137-145); TOTAL PROTEIN 6.4 g/dL (6.3-8.2)
[2016-12-24 16:48] LABS: APPEARANCE,URINE SLIGHTLY-CLOUDY; BILIRUBIN,URINE NEGATIVE (NEGATIVE); GLUCOSE, URINE NEGATIVE (NEGATIVE); KETONES,URINE NEGATIVE (NEGATIVE); LEUKOCYTE ESTERASE,URINE LARGE (NEGATIVE); NITRITE,URINE NEGATIVE (NEGATIVE); PROTEIN,URINE 30 mg/dL (NEGATIVE); URINE SPECIFIC GRAVITY 1.013; UROBILINOGEN,URINE NEGATIVE mg/dL (<2.0)
[2016-12-24] MEDS ORDERED: HYDROMORPHONE HCL INJ/PF 2 MG/ML AMPULE IV ONE (17:09)
[2016-12-24 18:56] VITALS: BP 117/75
== END 2016-12-24 19:42 | disposition home or self-care (01) ==
LOC: ER 15:34
DX: R10.9 Unspecified abdominal pain (principal); I95.9 Hypotension, unspecified; R51 Headache; R42 Dizziness and giddiness; R50.9 Fever, unspecified; G89.18 Other acute postprocedural pain; R33.9 Retention of urine, unspecified; M06.9 Rheumatoid arthritis, unspecified; Z87.442 Personal history of urinary calculi; Z88.0 Allergy status to penicillin; Z91.040 Latex allergy status
CPT/HCPCS: 99284; 96361; 96374; 36415; 87086; 85025; 80053; 81001; 74176; J1170; J7030

== ENCOUNTER → 2017-01-01 | Outpatient (CLI) | payer BC ==
[2017-01-01 15:29] LABS: ABSOLUTE BASOPHILS # (AUTO) 0.1 10^3/uL (0.0-0.2); ABSOLUTE EOSINOPHILS # (AUTO) 0.4 10^3/uL (0.0-0.6); ABSOLUTE LYMPHOCYTES (AUTO) 2.5 10^3/uL (0.5-4.7); ABSOLUTE MONOCYTES (AUTO) 0.5 10^3/uL (0.1-1.4); ABSOLUTE NEUT (AUTO) 1.9 10^3/uL (1.7-8.2); BASOPHILS % (AUTO) 1.2 % (0-2); EOSINOPHILS % (AUTO) 6.6 % (0-6); HEMATOCRIT 38.3 % (36.0-47.0); HEMOGLOBIN 13.1 g/dL (12.0-15.5); LYMPHOCYTES % (AUTO) 46.9 % (13-45); MEAN CORPUSCULAR HEMOGLOBIN 29.8 pg (27.0-33.4); MEAN CORPUSCULAR HGB CONC 34.1 g/dL (32.0-36.0); MEAN CORPUSCULAR VOLUME 87 fl (80-97); MONOCYTES % (AUTO) 9.4 % (3-13); RED BLOOD COUNT 4.39 10^6/uL (3.72-5.28); RED CELL DISTRIBUTION WIDTH 12.8 % (11.5-14.0); SEGMENTED NEUTROPHILS % (AUTO) 35.9 % (42-78); WHITE BLOOD COUNT 5.4 10^3/uL (4.0-10.5)
[2017-01-01 16:06] LABS: ERYTHROCYTE SEDIMENTATION RATE 25 mm/hr (0-20)
== END ==
LOC: LAB 14:59
PROVIDERS: ATTEND Pain Medicine Interventional Pain Medicine
DX: R50.9 Fever, unspecified (principal)
CPT/HCPCS: 36415; 85025; 85652; 86140

== ENCOUNTER → 2017-01-03 | Outpatient (CLI) | payer BC | LOC: RAD 12:41 | PROVIDERS: ATTEND Pain Medicine Interventional Pain Medicine | DX: S22.080S Wedge compression fracture of T11-T12 vertebra, sequela (principal); X58.XXXS Exposure to other specified factors, sequela | CPT/HCPCS: 72146 ==

== ENCOUNTER → 2017-03-16 | Outpatient (CLI) | payer BC ==
--- NOTE | 2017-03-16 16:24 | RADIOLOGY REPORT (SQ) ---
EXAM DESCRIPTION: NM PARATHYROID IMAGING COMPLETED DATE/TIME: 03/16/2017 3:14 pm REASON FOR STUDY: HYPERPARATHYROIDISM E21.3 HYPERPARATHYROIDISM, UNSPECIFIED COMPARISON: None. RADIONUCLIDE AND DOSE: 21.8 millicuries Tc-99m Sestamibi. The route of agent administration: Intravenous ADDITIONAL DRUGS AND DOSES: None. TECHNIQUE: Early and delayed images of the neck acquired following radionuclide administration. LIMITATIONS: None. FINDINGS: Thyroid: Normal size. Homogeneous activity. Normal washout. No focal lesions. Parathyroid: No retained activity in the thyroid or elsewhere in the neck to indicate a parathyroid a denoma. Other: No other significant findings. IMPRESSION: NORMAL STUDY. NO EVIDENCE OF PARATHYROID ADENOMA. TECHNICAL DOCUMENTATION: JOB ID: [id number] [employer] All Rights Reserved
== END ==
LOC: RAD 10:39
PROVIDERS: ATTEND Internal Medicine Rheumatology
DX: E21.3 Hyperparathyroidism, unspecified (principal)
CPT/HCPCS: 78070; A9500; Q9969

== ENCOUNTER → 2017-03-25 | Outpatient (CLI) | payer BC ==
--- NOTE | 2017-03-25 13:20 | RADIOLOGY REPORT (SQ) ---
EXAM DESCRIPTION: T SPINE AP/LAT COMPLETED DATE/TIME: 03/25/2017 12:07 pm REASON FOR STUDY: PAIN IN THORACIC SPINE M54.6 PAIN IN THORACIC SPINE COMPARISON: None. NUMBER OF VIEWS: Two views. TECHNIQUE: AP and lateral radiographic images acquired of the thoracic spine. LIMITATIONS: None. FINDINGS: MINERALIZATION: Osteopenia. ALIGNMENT: Mild dextroscoliosis in the mid thoracic spine and levoscoliosis at the thoracolumbar junc tion. VERTEBRAE: No acute fracture. Vertebroplasty changes and mild compression present at T12. DISCS: No significant loss of height or significant narrowing. No large osteophytes. HARDWARE: None in the spine. MEDIASTINUM AND SOFT TISSUES: Normal heart size and aortic contour. No soft tissue abnormality. VISUALIZED LUNG SANTOYO: Clear. OTHER: No other significant finding. IMPRESSION: No acute abnormality. Findings as described. TECHNICAL DOCUMENTATION: JOB ID: [id number] [employer]- All Rights Reserved
== END ==
LOC: RAD 11:47
PROVIDERS: ATTEND Pain Medicine Interventional Pain Medicine
DX: M54.6 Pain in thoracic spine (principal)
CPT/HCPCS: 72070

== ENCOUNTER 2017-05-25 15:32 | Emergency (ER) | payer BC ==
--- NOTE | 2017-05-25 17:06 | ER Document Report ---
ED Fall - General Mode of Arrival: Wheelchair Information source: Patient TRAVEL OUTSIDE OF THE [place]. IN LAST 30 DAYS: No - HPI Occurred: Just prior to arrival - General Chief Complaint: Fall Stated Complaint: FALL,DIZZINESS,HEADACHE Time Seen by Provider: 05/25/17 16:30 Notes: Patient is a 52-year-old female presents emergency department from the radiology department due to a fall. Patient was having an outpatient x-ray done on her hand and wrist from a previous fall last week. Patient states that she has had a migraine for the past 3 days and she felt like she is going to be sick so she went to the bathroom. Patient states she started vomiting before she could turn the light on in the bathroom and she fell. Patient states that she pulled the help cord in the bathroom and patient was brought to the emergency department to be evaluated for such. Patient has been evaluated in this emergency department for frequent falls, fractures and related injuries. Patient is unsure why she falls and injures herself so much. Patient states she does have a history of parathyroid, lupus, rheumatoid arthritis, migraines, osteoporosis, scleroderma, interstitial cystitis, and is prone to urinary tract infections. Patient states that the only possible reason for her falls that she has been told is the fact that she has difficulty staying hydrated due to having lots of calcium in her kidneys. Patient does not have a primary family doctor and instead is being followed by Dr. Danielle Rodriges with [facility] pain [facility] and her [employer] physician Dr. Thomas. Patient has been seen by multiple specialties including urologist, rheumatoid radiologist, neurologist, and a turnaround planner. Patient states that she also takes Percocet for her chronic pain. Patient also complains of some dizziness. Patient denies any injuries related to the episode of falling while she was in the bathroom at radiology today. Patient denies any head, neck, chest, back or other pain. Patient does complain of pain to her left wrist and left forearm which she is being followed outpatient for. (SHANTI VERAS) - Related data Allergies/Adverse Reactions: adhesive tape Allergy (Severe, Verified 12/24/16 15:42) Blisters amoxicillin trihydrate [From Augmentin] Allergy (Severe, Verified 12/24/16 15:42 ) severe migraine ezetimibe [From Vytorin] Allergy (Severe, Verified 12/24/16 15:42) muscle pain,increased creatine latex [Latex] Allergy (Severe, Verified 12/24/16 15:42) Blisters Potassium Clavulanate * [From Augmentin] Allergy (Severe, Verified 12/24/16 15: 42) severe migraine simvastatin [From Vytorin] Allergy (Severe, Verified 12/23/16 11:55) muscle pain,increased creatine magnesium sulfate [Magnesium Sulfate] Allergy (Intermediate, Verified 12/24/16 15:42) panic, nervousness, skin crawling dexamethasone [From Decadron] Allergy (Mild, Verified 12/23/16 11:55) burning in bladder, skin itching Iodinated Contrast- Oral and IV Dye [IV Dye, Iodine Containing] Allergy (Mild, Verified 12/24/16 15:42) Hives prochlorperazine edisylate [From Compazine] Allergy (Mild, Verified 12/24/16 15: 42) makes heart race Bakazav-Psq-Cvd Reductase Inhibitor Allergy (Mild, Verified 07/28/16 09:00) muscle pain and increased creatinine Wpoqutja-6-SS4 Antimigraine Agents Allergy (Mild, Verified 07/28/16 09:00) makes heart race valsartan Allergy (Verified 12/24/16 15:42) Past Medical History - Social History Smoking Status: Unknown if Ever Smoked Family History: Arthritis, CAD, DM, Hyperlipidemia, Hypertension, Malignancy - Past Medical History Cardiac Medical History: Reports: Hx Hypertension - on meds Denies: Hx Coronary Artery Disease, Hx Heart Attack Pulmonary Medical History: Reports: Hx Asthma - as child, Hx Pneumonia Denies: Hx Bronchitis, Hx COPD Neurological Medical History: Reports: Hx Migraine. Denies: Hx Cerebrovascular Accident, Hx Seizures Renal/ Medical History: Reports: Hx Kidney Stones. Denies: Hx Peritoneal Dialysis Musculoskeltal Medical History: Reports Hx Arthritis - rheumatoid, Reports Hx Musculoskeletal Deformity, Reports Hx Musculoskeletal Trauma Traumatic Medical History: Reports: Hx Fractures Past Surgical History: Reports: Hx Appendectomy, Hx Section, Hx Genitourinary Surgery - bladder and ureter reimplantation, Hx Orthopedic Surgery - bunion, Other - Kyphoplasty 12/2016 - Immunizations Immunizations up to date: Yes Hx Diphtheria, Pertussis, Tetanus Vaccination: Yes Review of Systems - Review of Systems Constitutional: No symptoms reported EENT: No symptoms reported Cardiovascular: No symptoms reported Respiratory: No symptoms reported Gastrointestinal: See HPI, Nausea, Vomiting Genitourinary: No symptoms reported Female Genitourinary: No symptoms reported Musculoskeletal: See HPI Skin: No symptoms reported Hematologic/Lymphatic: No symptoms reported Neurological/Psychological: See HPI, Weakness, Headaches - Migraine -: Yes All other systems reviewed and negative Physical Exam - Vital signs Vitals: Temp Pulse Resp BP Pulse Ox 98.2 F 94 18 132/95 H 99 05/25/17 18:05 05/25/17 18:05 05/25/17 18:05 05/25/17 18:05 05/25/17 18:05 - Notes Notes: GENERAL: Alert, interacts well. Mild distress. HEAD: Normocephalic, atraumatic. EYES: Appear normal. Pupils equal, round, and reactive to light. ENT: Moist mucus membranes, tongue midline. NECK: Full range of motion. Supple. Trachea midline. LUNGS: Clear to auscultation bilaterally, no wheezes, rales, or rhonchi. No respiratory distress. HEART: Regular rate and rhythm. No murmurs, gallops, or rubs. ABDOMEN: Soft, non-tender. Non-distended. Normal bowel sounds. EXTREMITIES: Moves all 4 extremities spontaneously. Normal strength. No edema. Mild tenderness with palpation over the left wrist and forearm. No bony deformity. No excessive swelling. No sign of ecchymosis. Good pulses, sensation and perfusion. NEUROLOGICAL: Alert and oriented x3. Normal speech. No focal neurological deficits. GSC 15. PSYCH: Normal affect, normal mood. SKIN: Warm, dry, pale, normal turgor. No rashes or lesions noted. (SHANTI VERAS) Course - Re-evaluation Re-evalutation: 05/25/17 17:53 Patient presents the emergency department with chief complaint of fall over in radiology. She was getting an outpatient x-ray of her left wrist and left hand after falling on outstretched hand last week. She was seen and evaluated at the pain management clinic and sent over for outpatient film. She says she falls frequently gets dehydrated from her calcium issues. She says as a result of that she has multiple frequent falls which we have seen her multiple times for falls. She states she went into the bathroom felt a little nauseated and then sat down. She denies injuring herself with the fall headache blurred vision or double vision. She does have a history of migraine since she had one starting today. She takes multiple medications for that but has not taken them yet today. She has a history of lupus, scleroderma, osteoporosis, interstitial cystitis, migraines, chronic pain, and is prone to urinary tract infections. She does not have a primary care physician but sees Dr. Thomas [employer] urologist in [place] and a workers' compensation magistrate in [place]. She denies any injuries from the episode of her radiology. She denies any head neck chest back pain. She complains of pain that she has had for a week and a half in the left wrist and left forearm area which she was sent over for. No obvious deformity good pulses and perfusion. X-ray read by the radiologist is negative I pulled the fellow myself in the midshaft area see what looks like a prominent nutrient vessel but was concerned that there could be a fracture there. I called and spoke with the radiologist who read the film who states that that is a nutrient vessel and not a fracture. This time we mirna Young wrap she will follow-up with the physician that ordered it. And discussed reasons for ED return sooner (ROSI KANG) - Vital Signs Vital signs: Temp Pulse Resp BP Pulse Ox 98.2 F 94 18 132/95 H 99 05/25/17 18:05 05/25/17 18:05 05/25/17 18:05 05/25/17 18:05 05/25/17 18:05 Discharge - Discharge Clinical Impression: left arm injury s/p recent fall, fall in radiology Condition: Stable Disposition: HOME, SELF-CARE Additional Instructions: Sprain Your injury is a sprain. A sprain results from stretching or tearing of the ligaments, usually from a twisting injury. The ligaments will require time and protection in order to heal properly. Many sprains are quite disabling and should be taken seriously. The usual initial treatment of sprains is cold packs, elevation, and rest of the injured area. Your physician has assessed the seriousness of your ligament injury, and has outlined a treatment plan. Understand that this treatment may change, depending on how you progress. If a re-examination was recommended, it is important that you follow up as instructed. Call the doctor any time if there is severe pain, numbness, or loss of function in the injured area. Follow with history of frequent falls. Referrals: NOVA THOMAS MD [Primary Care Provider] - (In 2-3 days return for increasing worsening or new symptoms) Scribe Attestation: 05/25/17 17:58 I personally performed the services described in the documentation reviewed the documentation recorded by my scribe in my presence and it accurately and completely records my words and actions (ROSI KANG) Scribe Documentation - Scribe Written by Scrarcenio:: Heidy Boothe, 03/25/[id number] acting as scribe for :: Yordan
--- NOTE | 2017-05-25 17:21 | RADIOLOGY REPORT (SQ) ---
EXAM DESCRIPTION: FOREARM LEFT COMPLETED DATE/TIME: 05/25/2017 5:10 pm REASON FOR STUDY: Pain s/p injury COMPARISON: None. NUMBER OF VIEWS: Two views. TECHNIQUE: Two radiographic images acquired of the left forearm, including elbow and wrist in at [address] one projection. LIMITATIONS: None. FINDINGS: MINERALIZATION: Normal. BONES: No acute fracture. No worrisome bone lesions. SOFT TISSUES: No obvious swelling or foreign body. OTHER: No other significant finding. IMPRESSION: NEGATIVE STUDY OF THE LEFT FOREARM. NO RADIOGRAPHIC EVIDENCE OF ACUTE INJURY. TECHNICAL DOCUMENTATION: JOB ID: [id number] [employer]- All Rights Reserved
[2017-05-25 18:31] VITALS: BP 132/95
== END 2017-05-25 18:10 | disposition home or self-care (01) ==
LOC: ER 15:32
DX: S49.92XA Unspecified injury of left shoulder and upper arm, initial encounter (principal); R42 Dizziness and giddiness; R51 Headache; W18.30XA Fall on same level, unspecified, initial encounter; Y92.238 Other place in hospital as the place of occurrence of the external cause; G89.29 Other chronic pain; I10 Essential (primary) hypertension; J45.909 Unspecified asthma, uncomplicated; Z87.442 Personal history of urinary calculi; Z88.0 Allergy status to penicillin; Z88.3 Allergy status to other anti-infective agents; Z91.040 Latex allergy status; Z91.81 History of falling
CPT/HCPCS: 99285

== ENCOUNTER → 2017-05-25 | Outpatient (CLI) | payer BC ==
--- NOTE | 2017-05-25 17:30 | RADIOLOGY REPORT (SQ) ---
EXAM DESCRIPTION: HAND LEFT 3 VIEWS COMPLETED DATE/TIME: 05/25/2017 4:57 pm REASON FOR STUDY: FALL ON OUTSTRETCHED HAND COMPARISON: None. EXAM PARAMETERS: NUMBER OF VIEWS: Three views. TECHNIQUE: AP, lateral and oblique radiographic images acquired of the left hand. LIMITATIONS: None. FINDINGS: MINERALIZATION: There is some degree of juxta-articular osteopenia. BONES: No acute fracture or dislocation. No worrisome bone lesions. There are no marginal erosions or joint changes. JOINTS: No effusions. SOFT TISSUES: No soft tissue swelling. No foreign body. OTHER: No other significant finding. IMPRESSION: Juxta-articular osteopenia with no acute abnormality. TECHNICAL DOCUMENTATION: JOB ID: [id number]- All Rights Reserved
== END ==
LOC: RAD 14:51
PROVIDERS: ATTEND Pain Medicine Interventional Pain Medicine
DX: S69.92XA Unspecified injury of left wrist, hand and finger(s), initial encounter (principal); W19.XXXA Unspecified fall, initial encounter; Y93.9 Activity, unspecified; Y92.9 Unspecified place or not applicable

== ENCOUNTER → 2017-07-27 | Outpatient (CLI) | payer BC | LOC: LAB 06:27 | PROVIDERS: ATTEND Urology | DX: N39.0 Urinary tract infection, site not specified (principal) | CPT/HCPCS: 87086; 87088; 87186 ==

== ENCOUNTER → 2017-07-30 | Outpatient (CLI) | payer BC ==
[2017-07-31 07:22] LABS: VITAMIN D 25-HYDROXY 39.4 ng/mL (30.0-100.0)
[2017-07-31 14:09] LABS: VITAMIN D 1,25 DIHYDROXY 15.9 pg/mL (19.9-79.3)
== END ==
LOC: LAB 13:15
PROVIDERS: ATTEND Surgery
DX: E21.5 Disorder of parathyroid gland, unspecified (principal); E07.9 Disorder of thyroid, unspecified
CPT/HCPCS: 36415; 82306; 82310; 82652; 83970

== ENCOUNTER → 2017-09-16 | Outpatient (CLI) | payer BC | LOC: LAB 12:38 | PROVIDERS: ATTEND Urology | DX: N29 Other disorders of kidney and ureter in diseases classified elsewhere (principal) | CPT/HCPCS: 87086; 87088; 87186 ==

== ENCOUNTER → 2017-11-04 | Outpatient (CLI) | payer BC ==
--- NOTE | 2017-11-04 19:34 | XCELERA REPORT ---
[address] [address] Transthoracic Echocardiogram Report Name: GISEL SO Age: 52 yrs Gender: Female : 1965 Patient Status: Outpatient Patient Location: [facility] Study Date: 11/04/2017 02:49 PM Height: 64 in Weight: 128 lb BSA: 1.6 m2 Reason For Study: PULM HTN Ordering Physician: BRYANNA GARCIA Performed By: Rosa Jones Interpretation Summary Very poor study with poor apical 4 chamber view, and no apical 2 chamber view to assess biplane LVEF, no RH visualization to r/o pulm hypertension. Limited information . see above. MMode/2D Measurements & Calculations RVDd: 2.4 cm LVIDd: 3.8 cm FS: 40.5 % Ao root diam: 3.0 cm IVSd: 0.79 cm LVIDs: 2.3 cm EDV(Teich): 63.8 ml LVPWd: 0.76 cm ESV(Teich): 17.9 ml Ao root area: 7.2 cm2 EF(Teich): 72.0 % LA dimension: 2.4 cm Doppler Measurements & Calculations MV E max leigh: MV P1/2t max leigh: Ao V2 max: LV V1 max P.6 cm/sec 66.6 cm/sec 112.0 cm/sec 3.4 mmHg MV A max leigh: MV P1/2t: 53.1 msec Ao max PG: LV V1 max: 47.4 cm/sec 5.0 mmHg 92.8 cm/sec MV E/A: 1.4 MVA(P1/2t): 4.1 cm2 MV dec slope: 367.3 cm/sec2 PA V2 max: 86.4 cm/sec PA max P.0 mmHg Left Ventricle There is normal left ventricular wall thickness. Left ventricular systolic function is normal. Doppler measurements suggest normal left ventricular diastolic function. Not all wall segments were well visualized. The left ventricular apex is not well visualized. Right Ventricle The right ventricle is not well visualized secondary to technical limitations. Atria Right atrium not well visualized secondary to technical limitations. The left atrial size is normal. Mitral Valve The mitral valve is grossly normal. There is no evidence of mitral valve prolapse. There is no mitral valve stenosis. There is no mitral regurgitation noted. Aortic Valve The aortic valve is not well visualized secondary to technical limitations. Cannot exclude aortic valvular vegetation. There is no aortic valve stenosis. by doppler. No aortic regurgitation is present. Tricuspid Valve The tricuspid valve is not well visualized secondary to technical limitations. Tricuspid regurgitation jet envelope not well defined to measure RV systolic pressure accurately. with no clearly identified TR jet or R heart visualization, this ECHO is unable to provide or a ruleout pulm hypertension. If indeed pulm hypertension need to be confirmed, recommend a right heart cath. Pulmonic Valve The pulmonic valve is not well visualized. Great Vessels The aortic root is normal size. Effusions Small pericardial effusion. I WMSI = 1.00 % Normal = 100 Segments Size X - Cannot 1 - Normal 2 - 3 - Akinetic4 - 1-2 small Interpret Hypokinetic Dyskinetic 3-5 moderate 5 - 6-14 large Aneurysmal 15-16 diffuse : BRYANNA GARCIA > Dwayne Hernandez
--- NOTE | 2017-11-05 13:32 | PULMONARY FUNCTION TEST ---
DATE OF SERVICE: 11/04/2017 THE VITAL CAPACITY IS NORMAL. THE EXPIRATORY FLOW RATES ARE NORMAL. THE FEV1/VC IS 76%, PREDICTED: 84% LUNG VOLUMES BY NITROGEN WASH OUT METHOD SHOW: TLC IS 102% OF PREDICTED FRC IS 88% OF PREDICTED RV IS 75% OF PREDICTED THE DLCO IS 20.6, 105% OF PREDICTED. THE RV/TLC RATIO IS 26% PREDICTED 35% AFTER BRONCHODILATOR, EXPIRATORY FLOW RATES SHOW . IMPRESSION: ALTHOUGH THE FLOW-VOLUME LOOP SHOWS POOR PATIENT TECHNIQUE, THE VITAL CAPACITY AND EXPIRATORY FLOW RATES ARE NORMAL. THE DECREASE IN FEV1/VC SUGGESTS A SLIGHT OBSTRUCTIVE DEFECT. LUNG VOLUMES ARE SLIGHTLY DECREASED. DIFFUSING CAPACITY IS NORMAL. CC: BRYANNA GARCIA MD > LEROY
== END ==
LOC: RT 13:15
PROVIDERS: ATTEND Internal Medicine Rheumatology
DX: I27.20 Pulmonary hypertension, unspecified (principal); J84.17 Other interstitial pulmonary diseases with fibrosis in diseases classified elsewhere
CPT/HCPCS: 93306; 94010; 94727; 94729

== ENCOUNTER → 2017-12-05 | Outpatient (CLI) | payer BC | LOC: LAB 17:54 | PROVIDERS: ATTEND Urology | DX: N39.0 Urinary tract infection, site not specified (principal) | CPT/HCPCS: 87086; 87088; 87186 ==

== ENCOUNTER → 2018-02-03 | Outpatient (CLI) | payer BC | LOC: LAB 13:48 | PROVIDERS: ATTEND Urology | DX: N39.0 Urinary tract infection, site not specified (principal) | CPT/HCPCS: 87086; 87088; 87186 ==

== ENCOUNTER → 2018-04-20 | Outpatient (CLI) | payer BC | LOC: LAB 16:01 | PROVIDERS: ATTEND Urology | DX: N39.0 Urinary tract infection, site not specified (principal) | CPT/HCPCS: 87086; 87088; 87186 ==

== ENCOUNTER → 2018-07-03 | Outpatient (CLI) | payer BC | LOC: LAB 09:00 | PROVIDERS: ATTEND Urology | DX: N39.0 Urinary tract infection, site not specified (principal) | CPT/HCPCS: 87086; 87088; 87186 ==

== ENCOUNTER 2018-07-16 18:56 | Emergency (ER) | payer BC ==
--- NOTE | 2018-07-16 21:31 | RADIOLOGY REPORT (SQ) ---
EXAM DESCRIPTION: XR SHOULDER 2 OR MORE VIEWS COMPLETED DATE/TME: 07/16/2018 19:29 CLINICAL HISTORY: 53 years, Female, fall shoulder pain COMPARISON: None. EXAM DESCRIPTION: CLINICAL HISTORY: fall shoulder pain COMPARISON: None FINDINGS: 3 view(s) submitted. There is a comminuted fracture of the distal right clavicle, mildly diastatic. No other fracture or dislocation. IMPRESSION: Distal right clavicle fracture..
[2018-07-16] MEDS ORDERED: RINGERS SOLUTION,LACTATED 1,000 ML IV ONE (22:10)
[2018-07-16] MEDS ORDERED: FENTANYL CITRATE INJ/PF 100 MCG/2 ML AMPUL IV PRN (22:10)
[2018-07-16] MEDS ORDERED: KETOROLAC TROMETHAMINE INJ/PF 30 MG/1 ML SDV IV ONE (22:10)
--- NOTE | 2018-07-16 22:11 | ER Document Report ---
ED General - General Chief Complaint: Arm Injury Stated Complaint: FALL Time Seen by Provider: 07/16/18 20:24 Notes: Patient is a 53-year-old female with a past medical history of neurogenic bladder, multiple autoimmune conditions, who presents after a fall. The patient is somewhat uncertain about the exact etiology of the fall but believes that she became lightheaded and then fell to the ground striking the right side of her head and right shoulder. She denies loss of consciousness, vomiting, weakness or numbness since the fall. No use of anticoagulation. She does note a dull, throbbing, constant pain over her right shoulder, right alevism, and over her nose. Nothing improves or worsens pain to the affected areas other than the shoulder to which she reports moving dramatically increases the pain. She has a history of frequent falls in the past secondary to chronic gait instability from her chronic medical conditions. She has not seen her general doctor regarding today's concerns. She denies any neck pain, back pain, or trauma to any other location other than as listed above. TRAVEL OUTSIDE OF THE [place] IN LAST 30 DAYS: No - Related Data Allergies/Adverse Reactions: adhesive tape Allergy (Severe, Verified 12/24/16 15:42) Blisters amoxicillin trihydrate [From Augmentin] Allergy (Severe, Verified 12/24/16 15:42 ) severe migraine ezetimibe [From Vytorin] Allergy (Severe, Verified 12/24/16 15:42) muscle pain,increased creatine latex [Latex] Allergy (Severe, Verified 12/24/16 15:42) Blisters Potassium Clavulanate * [From Augmentin] Allergy (Severe, Verified 12/24/16 15: 42) severe migraine simvastatin [From Vytorin] Allergy (Severe, Verified 12/23/16 11:55) muscle pain,increased creatine magnesium sulfate [Magnesium Sulfate] Allergy (Intermediate, Verified 12/24/16 15:42) panic, nervousness, skin crawling dexamethasone [From Decadron] Allergy (Mild, Verified 12/23/16 11:55) burning in bladder, skin itching Iodinated Contrast- Oral and IV Dye [IV Dye, Iodine Containing] Allergy (Mild, Verified 12/24/16 15:42) Hives prochlorperazine edisylate [From Compazine] Allergy (Mild, Verified 12/24/16 15: 42) makes heart race Cpgpwtf-Bpu-Xqg Reductase Inhibitor Allergy (Mild, Verified 07/28/16 09:00) muscle pain and increased creatinine [id number]-0-IJ4 Antimigraine Agents Allergy (Mild, Verified 07/28/16 09:00) makes heart race valsartan Allergy (Verified 12/24/16 15:42) Past Medical History - General Information source: Patient - Social History Smoking Status: Never Smoker Frequency of alcohol use: None Drug Abuse: None Lives with: Spouse/Significant other Family History: Arthritis, CAD, DM, Hyperlipidemia, Hypertension, Malignancy Patient has suicidal ideation: No Patient has homicidal ideation: No - Past Medical History Cardiac Medical History: Reports: Hx Hypertension - on meds Denies: Hx Coronary Artery Disease, Hx Heart Attack Pulmonary Medical History: Reports: Hx Asthma - as child, Hx Pneumonia Denies: Hx Bronchitis, Hx COPD Neurological Medical History: Reports: Hx Migraine. Denies: Hx Cerebrovascular Accident, Hx Seizures Renal/ Medical History: Reports: Hx Kidney Stones. Denies: Hx Peritoneal Dialysis Musculoskeletal Medical History: Reports Hx Arthritis - rheumatoid, Reports Hx Musculoskeletal Deformity, Reports Hx Musculoskeletal Trauma Traumatic Medical History: Reports: Hx Fractures Past Surgical History: Reports: Hx Appendectomy, Hx Section, Hx Genitourinary Surgery - bladder and ureter reimplantation, Hx Orthopedic Surgery - bunion, Other - Kyphoplasty 12/2016 - Immunizations Immunizations up to date: Yes Hx Diphtheria, Pertussis, Tetanus Vaccination: Yes Review of Systems - Review of Systems Notes: Constitutional: Negative for fever. Eyes: Negative for visual changes. ENT: Positive for nose injury Cardiovascular: Negative for chest injury. Respiratory: Negative for shortness of breath. Gastrointestinal: Negative for abdominal injury. Genitourinary: Negative for genital injury Musculoskeletal: Positive for right shoulder injury Skin: Negative for laceration/abrasions. Neurological: Positive for head injury. Physical Exam - Vital signs Vitals: Temp Pulse Resp BP Pulse Ox 97.9 F 68 12 92/52 L 98 07/16/18 19:03 07/16/18 19:03 07/16/18 19:03 07/16/18 19:03 07/16/18 19:03 Interpretation: Hypotensive - Resolved at the time my assessment Notes: PHYSICAL EXAMINATION: GENERAL: Well-appearing, no acute distress. HEAD: Atraumatic, normocephalic. EYES: Pupils equal round and reactive to light, extraocular movements intact, sclera anicteric, conjunctiva are normal. ENT: nares patent, no oral pharyngeal trauma. No hemotympanum, no Mccurdy's sign , no raccoon eyes. NECK: No midline cervical spine tenderness. Patient able to move their head to 45 bilaterally without any discomfort. LUNGS: Breath sounds clear to auscultation bilaterally and equal. No wheezes rales or rhonchi. HEART: Regular rate and rhythm without murmurs. CHEST WALL: No ecchymosis over the chest wall. ABDOMEN: Soft, nontender, normoactive bowel sounds. No guarding, no rebound. No abdominal bruising EXTREMITIES: Patient refuses to perform range of motion of the right shoulder due to pain. Swelling and bruising noted over the right clavicle. Extremity examination otherwise unremarkable. No pitting or edema. No long bone deformities. BACK: No midline spinal tenderness, step-offs, or deformities. NEUROLOGICAL: Face symmetric. Tongue protrudes midline. Extraocular motions intact. Pupils are 2 mm and equally reactive. Normal speech, 5 out of 5 strength in both the distal and proximal upper and lower extremities bilaterally. Sensation is grossly intact throughout. Finger to nose testing normal. Pronator drift normal. PSYCH: Normal mood, normal affect. SKIN: Warm, Dry, normal turgor, no rashes or lesions noted. Course - Re-evaluation Re-evalutation: 07/16/18 22:07 Presentation of a well patient in no acute distress, vitals within normal limits after a fall. Patient is uncertain of the cause of the fall, possible syncope. EKG unremarkable. No focal neurologic deficits on exam, no evidence of basilar skull fracture on exam without evidence of hemotympanum, raccoon eyes , or periauricular hematoma. No papilledema. Patient is not on anticoagulation. GCS is 15. No loss of consciousness. No episodes of vomiting. Patient is therefore negative via German head CT criteria and CT imaging will not be obtained at this time. Patient also evaluated by nexus criteria and found to be negative. Patient is also negative by cypriot C-spine criteria. No clinical evidence to suggest increased risk of cervical spine fracture. No indication for further imaging of the cervical spine. Patient is complaining of right shoulder pain, x-ray shows a distal right clavicle fracture. The patient has been placed in a sling and orthopedic follow-up has been recommended. A nasal bone x-ray is pending. Chest and abdominal exam are benign without any focal tenderness, shortness of breath, or bruising over the chest or abdominal wall. Patient has no flank tenderness. Blood work pending as there was a questionable syncopal episode today. 07/17/18 00:00 Blood work unremarkable without evidence of acute kidney injury, electrolyte abnormality or significant anemia. CK unremarkable. Patient's nasal bone x- ray does show fractures. The patient has been placed in a sling. ENT and orthopedic follow-up has been provided. At this time will discharge with return precautions and follow-up recommendations. Verbal discharge instructions given a the bedside and opportunity for questions given. Medication warnings reviewed. Patient is in agreement with this plan and has verbalized understanding of return precautions and the need for primary care follow-up in the next 24-72 hours. - Vital Signs Vital signs: Temp Pulse Resp BP Pulse Ox 97.9 F 68 10 L 117/78 96 07/16/18 19:06 07/16/18 19:03 07/17/18 00:01 07/17/18 00:00 07/17/18 00:01 - Laboratory Result Diagrams: 07/16/18 22:35 07/16/18 22:35 Laboratory results interpreted by me: 07/16/18 07/16/18 22:35 22:35 Hgb 11.6 L Hct 34.4 L Potassium 3.4 L BUN 6 L - Diagnostic Test Radiology reviewed: Image reviewed, Reports reviewed Radiology results interpreted by me: 07/17/18 03:52 Right shoulder x-ray: Lateral and fracture of the clavicle Discharge - Discharge Clinical Impression: Lightheadedness Right clavicle fracture Qualifiers: Encounter type: initial encounter Clavicle location: lateral end Fracture type : closed Fracture alignment: nondisplaced Qualified Code(s): S42.034A - Nondisplaced fracture of lateral end of right clavicle, initial encounter for closed fracture Nasal bone fractures Qualifiers: Encounter type: initial encounter Fracture type: closed Qualified Code(s): S02.2XXA - Fracture of nasal bones, initial encounter for closed fracture Fall Qualifiers: Encounter type: initial encounter Qualified Code(s): W19.XXXA - Unspecified fall, initial encounter Condition: Good Disposition: HOME, SELF-CARE Additional Instructions: You have been seen in the Emergency Department (ED) today following a fall. Your workup today did not reveal any injuries that require you to stay in the hospital. Your x-ray did show a right clavicle fracture as well as nasal bone fractures. You can expect, though, to be stiff and sore for the next several days. For your pain: Take ibuprofen 600 mg and acetaminophen 1000 mg every 6 hours together as needed for pain. If this does not control your pain you may take 15 mg of oral morphine every 4 hours as needed. Please be very careful about using the oral morphine and only use this for severe pain. You can apply a hot pack or electric heating pad to the sore areas. You can also use topical "Aspercreme with lidocaine" to sore areas as needed. Please follow up with your primary care doctor as soon as possible regarding today's ED visit and your recent fall. Call your doctor or return to the ED if you develop a sudden or severe headache , confusion, slurred speech, facial droop, weakness or numbness in any arm or leg, extreme fatigue, vomiting more than two times, severe abdominal pain, or other symptoms that concern you. Prescriptions: Morphine Sulfate [Morphine Ir 15 mg Tablet] 15 mg PO Q6HP PRN #12 tablet PRN Reason: Referrals: JESSICA GONCALVES III, MD [Primary Care Provider] - Follow up as needed MARY JO CHENG DO [ASSOCIATE] - Follow up in 1 week GWYN ESQUIVEL MD [ACTIVE STAFF] - Follow up in 1 week
--- NOTE | 2018-07-16 22:42 | RADIOLOGY REPORT (SQ) ---
EXAM DESCRIPTION: XR NASAL BONES COMPLETED DATE/TME: 07/16/2018 21:59 CLINICAL HISTORY: 53 years, Female, facial trauma COMPARISON: None. NUMBER OF VIEWS: 3 LIMITATIONS: Absent/limited Chamorro' view FINDINGS: Comminuted nondisplaced fracture/defect of the nasal bone. IMPRESSION: Nasal bone fracture/defect. Limitation.
[2018-07-16 22:50] LABS: HEMATOCRIT 34.4 % (36.0-47.0); HEMOGLOBIN 11.6 g/dL (12.0-15.5); MEAN CORPUSCULAR HEMOGLOBIN 29.5 pg (27.0-33.4); MEAN CORPUSCULAR HGB CONC 33.8 g/dL (32.0-36.0); MEAN CORPUSCULAR VOLUME 87 fl (80-97); PLATELET COUNT 262 10^3/uL (150-450); RED BLOOD COUNT 3.94 10^6/uL (3.72-5.28); RED CELL DISTRIBUTION WIDTH 13.4 % (11.5-14.0); WHITE BLOOD COUNT 5.8 10^3/uL (4.0-10.5)
[2018-07-16 23:07] LABS: ANION GAP 10 (5-19); BLOOD UREA NITROGEN 6 mg/dL (7-20); CALCIUM 9.6 mg/dL (8.4-10.2); CARBON DIOXIDE 23 mmol/L (22-30); CHLORIDE 107 mmol/L (98-107); CREATINE KINASE 45 U/L (30-135); GLUCOSE 110 mg/dL (75-110); POTASSIUM 3.4 mmol/L (3.6-5.0); SODIUM 140.1 mmol/L (137-145)
[2018-07-17 00:19] VITALS: BP 117/78
[2018-07-17] MEDS ORDERED: MORPHINE SULFATE IR 15 MG TABLET ONE (00:43)
--- NOTE | 2018-07-17 09:35 | EKG REPORT ---
SEVERITY:- BORDERLINE ECG - SINUS RHYTHM BORDERLINE PROLONGED QT INTERVAL : Confirmed by: Whitney Nick MD 17-Jul-2018 09:34:40
== END 2018-07-17 00:49 | disposition home or self-care (01) ==
LOC: ER 18:56
DX: S02.2XXA Fracture of nasal bones, initial encounter for closed fracture (principal); S42.034A Nondisplaced fracture of lateral end of right clavicle, initial encounter for closed fracture; S09.90XA Unspecified injury of head, initial encounter; M25.511 Pain in right shoulder; R51 Headache; W19.XXXA Unspecified fall, initial encounter; I10 Essential (primary) hypertension; R42 Dizziness and giddiness; Y92.003 Bedroom of unspecified non-institutional (private) residence as the place of occurrence of the external cause; Z91.048 Other nonmedicinal substance allergy status; Z88.0 Allergy status to penicillin; Z91.040 Latex allergy status; Z88.8 Allergy status to other drugs, medicaments and biological substances; Z91.041 Radiographic dye allergy status
CPT/HCPCS: 93005; 99284; 96361; 96374; 96375; 36415; 82550; 85027; 80048; 84484; 70160; 73030; 93010; J3010; J1885; J7120

== ENCOUNTER → 2018-09-23 | Outpatient (CLI) | payer BC ==
--- NOTE | 2018-09-23 13:58 | WOMENS IMAGING REPORT ---
EXAM DESCRIPTION: BONE DENSITY HIP/SPINE COMPLETED DATE/TIME: 09/23/2018 1:23 pm REASON FOR STUDY: M81.8 OTHER OSTEOPOROSIS WITHOUT CURRENT PATHOLOGICAL FRACTURE M81.8 OTHER OSTEOP OROSIS WITHOUT CURRENT PATHOLOGICAL FRACTU COMPARISON: 08/05/2016. TECHNIQUE: Dual-Energy X-ray Absorptiometry (DEXA) of the AP Spine and Hip. LIMITATIONS: None. FINDINGS: LUMBAR SPINE: The bone mineral density (BMD) measured from L1-L4 in the AP projection correlates with a T-score of -2.6, which is osteoporosis as defined by the World Health Organization. HIP: The bone mineral density (BMD) measured in the left hip correlates with a T-score of -2.4, which is o steopenia as defined by the World Health Organization. IMPRESSION: 1. LUMBAR SPINE: OSTEOPOROSIS. 2. HIP: OSTEOPENIA. COMMENT: The World Health Organization defines low BMD as follows: T-score: Normal: Greater than -1.0 Osteopenia: Between -1.0 and -2.5 Osteoporosis: Less than -2.5 without fractures Established osteoporosis: Less than -2.5 with fractures In general, you may wish to consider: Diagnosis Treatment Follow-up DEXA Normal BMD Prevention 2-3 years Osteopenia Prevention/Therapy 1-2 years Osteoporosis Therapy Yearly TECHNICAL DOCUMENTATION: JOB ID: [id number] [employer]- All Rights Reserved Reading location - IP/workstation name: [email or web address]
== END ==
LOC: WI 12:54
PROVIDERS: ATTEND Internal Medicine Rheumatology
DX: M81.8 Other osteoporosis without current pathological fracture (principal); M85.88 Other specified disorders of bone density and structure, other site
CPT/HCPCS: 77080

== ENCOUNTER 2018-12-02 13:33 | Emergency (ER) | payer BC ==
--- NOTE | 2018-12-02 14:23 | ER Document Report ---
ED Medical Screen (RME) - General Chief Complaint: Pelvic Pain Stated Complaint: LOW PELVIC PAIN Time Seen by Provider: 12/02/18 14:16 Primary Care Provider: BRYANNA GARCIA MD [Primary Care Provider] - Follow up as needed Notes: 53 years old female with a history of urinary infection multiple times, self cath. Presents today with distention of the lower abdomen as well as pain. And difficulty urinating. On examination-distended tender bladder. TRAVEL OUTSIDE OF THE [place] IN LAST 30 DAYS: No - Related Data Allergies/Adverse Reactions: adhesive tape Allergy (Severe, Verified 12/02/18 13:36) Blisters amoxicillin trihydrate [From Augmentin] Allergy (Severe, Verified 12/02/18 13:36) severe migraine ezetimibe [From Vytorin] Allergy (Severe, Verified 12/02/18 13:36) muscle pain,increased creatine latex [Latex] Allergy (Severe, Verified 12/02/18 13:36) Blisters Potassium Clavulanate * [From Augmentin] Allergy (Severe, Verified 12/02/18 13:36) severe migraine simvastatin [From Vytorin] Allergy (Severe, Verified 12/02/18 13:36) muscle pain,increased creatine magnesium sulfate [Magnesium Sulfate] Allergy (Intermediate, Verified 12/02/18 13:36) panic, nervousness, skin crawling dexamethasone [From Decadron] Allergy (Mild, Verified 12/02/18 13:36) burning in bladder, skin itching Iodinated Contrast- Oral and IV Dye [IV Dye, Iodine Containing] Allergy (Mild, Verified 12/02/18 13:36) Hives prochlorperazine edisylate [From Compazine] Allergy (Mild, Verified 12/02/18 13:36) makes heart race Tptzctw-Azu-Img Reductase Inhibitor Allergy (Mild, Verified 12/02/18 13:36) muscle pain and increased creatinine [id number] Antimigraine Agents Allergy (Mild, Verified 12/02/18 13:36) makes heart race valsartan Allergy (Verified 12/02/18 13:36) Past Medical History - Past Medical History Cardiac Medical History: Reports: Hx Hypertension - on meds Denies: Hx Coronary Artery Disease, Hx Heart Attack Pulmonary Medical History: Reports: Hx Asthma - as child, Hx Pneumonia Denies: Hx Bronchitis, Hx COPD Neurological Medical History: Reports: Hx Migraine. Denies: Hx Cerebrovascular Accident, Hx Seizures Renal/ Medical History: Reports: Hx Kidney Stones. Denies: Hx Peritoneal D ialysis Musculoskeltal Medical History: Reports Hx Arthritis - rheumatoid, Reports Hx Musculoskeletal Deformity, Reports Hx Musculoskeletal Trauma Traumatic Medical History: Reports: Hx Fractures Past Surgical History: Reports: Hx Appendectomy, Hx Section, Hx Genitourinary Surgery - bladder and ureter reimplantation, Hx Orthopedic Surgery - bunion, Other - Kyphoplasty 12/2016 - Immunizations Immunizations up to date: Yes Hx Diphtheria, Pertussis, Tetanus Vaccination: Yes Physical Exam - Vital signs Vitals: Temp Pulse Resp BP Pulse Ox 99.0 F 104 H 16 153/91 H 100 12/02/18 13:54 12/02/18 13:54 12/02/18 13:54 12/02/18 13:54 12/02/18 13:54 Course - Vital Signs Vital signs: Temp Pulse Resp BP Pulse Ox 99.0 F 104 H 16 153/91 H 100 12/02/18 13:54 12/02/18 13:54 12/02/18 13:54 12/02/18 13:54 12/02/18 13:54 Doctor's Discharge - Discharge Referrals: BRYANNA GARCIA MD [Primary Care Provider] - Follow up as needed
[2018-12-02 15:01] LABS: ABSOLUTE EOSINOPHILS # (AUTO) 0.4 10^3/uL (0.0-0.6); ABSOLUTE LYMPHOCYTES (AUTO) 1.6 10^3/uL (0.5-4.7); ABSOLUTE MONOCYTES (AUTO) 0.4 10^3/uL (0.1-1.4); ABSOLUTE NEUT (AUTO) 3.9 10^3/uL (1.7-8.2); BASOPHILS % (AUTO) 0.5 % (0-2); EOSINOPHILS % (AUTO) 5.6 % (0-6); HEMATOCRIT 36.8 % (36.0-47.0); HEMOGLOBIN 12.5 g/dL (12.0-15.5); LYMPHOCYTES % (AUTO) 25.7 % (13-45); MEAN CORPUSCULAR HEMOGLOBIN 30.3 pg (27.0-33.4); MEAN CORPUSCULAR HGB CONC 33.9 g/dL (32.0-36.0); MEAN CORPUSCULAR VOLUME 89 fl (80-97); PLATELET COUNT 231 10^3/uL (150-450); RED BLOOD COUNT 4.12 10^6/uL (3.72-5.28); RED CELL DISTRIBUTION WIDTH 13.2 % (11.5-14.0); SEGMENTED NEUTROPHILS % (AUTO) 62.2 % (42-78); TOTAL CELLS COUNTED % (AUTO) 100 %; WHITE BLOOD COUNT 6.3 10^3/uL (4.0-10.5)
[2018-12-02 15:20] LABS: ALANINE AMINOTRANSFERASE 21 U/L (9-52); ALBUMIN 4.7 g/dL (3.5-5.0); ALKALINE PHOSPHATASE 90 U/L (38-126); ANION GAP 10 (5-19); ASPARTATE AMINO TRANSFERASE 26 U/L (14-36); BILIRUBIN,DIRECT 0.1 mg/dL (0.0-0.4); BILIRUBIN,TOTAL 0.3 mg/dL (0.2-1.3); BLOOD UREA NITROGEN 11 mg/dL (7-20); CARBON DIOXIDE 27 mmol/L (22-30); CHLORIDE 105 mmol/L (98-107); GLUCOSE 96 mg/dL (75-110); POTASSIUM 3.3 mmol/L (3.6-5.0); SODIUM 141.9 mmol/L (137-145); TOTAL PROTEIN 7.5 g/dL (6.3-8.2)
[2018-12-02 15:20] LABS: APPEARANCE,URINE CLOUDY; BILIRUBIN,URINE NEGATIVE (NEGATIVE); COLOR,URINE YELLOW; GLUCOSE, URINE NEGATIVE (NEGATIVE); KETONES,URINE NEGATIVE (NEGATIVE); LEUKOCYTE ESTERASE,URINE LARGE (NEGATIVE); NITRITE,URINE NEGATIVE (NEGATIVE); PROTEIN,URINE NEGATIVE (NEGATIVE); URINE SPECIFIC GRAVITY 1.006; UROBILINOGEN,URINE NEGATIVE mg/dL (<2.0)
[2018-12-02] MEDS ORDERED: ONDANSETRON 4 MG TAB.RAPDIS PO ONE (16:20)
[2018-12-02] MEDS ORDERED: CEFTRIAXONE INJ 1000 MG VIAL IM ONE (16:20)
[2018-12-02] MEDS ORDERED: OXYCODONE-ACETAMINOPHEN 5-325 MG TABLET PO ONE (16:20)
[2018-12-02] MEDS ORDERED: LIDOCAINE 1% INJ-PF (10 MG/ML) 30 ML SDV ONE (16:40)
--- NOTE | 2018-12-02 17:27 | ER Document Report ---
ED General - General Chief Complaint: Pelvic Pain Stated Complaint: LOW PELVIC PAIN Time Seen by Provider: 12/02/18 14:16 Primary Care Provider: BRYANNA GARCIA MD [NO LOCAL MD] - Follow up as needed TRAVEL OUTSIDE OF THE [place] IN LAST 30 DAYS: No - HPI Notes: Patient presents emergency department for evaluation. She states she has pain in her genital region and states she feels as if something is "falling out." She states she feels that she has another urinary tract infection. She gets them frequently as she self caths. She states she is still cathing herself 5 times a day. She states she is still getting urine output although she believes is slightly decreased. She has had some nausea and had one episode of emesis last night. She is concerned that the amount of pain she is having in her genital region is becoming unbearable. She actually has an appointment with her urologist on Thursday, but states the pain was too intense. She states she has had some fevers that do not come on during the day, they are worse at night. She is still tolerating fluids despite a few episodes of nonbloody, nonbilious emesis. She states she has seen blood in her underwear on occasion. She denies any vaginal bleeding that she is aware of. No vaginal discharge. She denies any history of STDs or sores in the genital region. - Related Data Allergies/Adverse Reactions: adhesive tape Allergy (Severe, Verified 12/02/18 13:36) Blisters amoxicillin trihydrate [From Augmentin] Allergy (Severe, Verified 12/02/18 13:36) severe migraine ezetimibe [From Vytorin] Allergy (Severe, Verified 12/02/18 13:36) muscle pain,increased creatine latex [Latex] Allergy (Severe, Verified 12/02/18 13:36) Blisters Potassium Clavulanate * [From Augmentin] Allergy (Severe, Verified 12/02/18 13:36) severe migraine simvastatin [From Vytorin] Allergy (Severe, Verified 12/02/18 13:36) muscle pain,increased creatine magnesium sulfate [Magnesium Sulfate] Allergy (Intermediate, Verified 12/02/18 13:36) panic, nervousness, skin crawling dexamethasone [From Decadron] Allergy (Mild, Verified 12/02/18 13:36) burning in bladder, skin itching Iodinated Contrast- Oral and IV Dye [IV Dye, Iodine Containing] Allergy (Mild, Verified 12/02/18 13:36) Hives prochlorperazine edisylate [From Compazine] Allergy (Mild, Verified 12/02/18 13:36) makes heart race Jkfhqzk-Qkp-Ery Reductase Inhibitor Allergy (Mild, Verified 12/02/18 13:36) muscle pain and increased creatinine Huaucgob-8-[id number] Antimigraine Agents Allergy (Mild, Verified 12/02/18 13:36) makes heart race valsartan Allergy (Verified 12/02/18 13:36) Past Medical History - General Information source: Patient - Social History Smoking Status: Unknown if Ever Smoked Chew tobacco use (# tins/day): No Frequency of alcohol use: None Drug Abuse: None Family History: Arthritis, CAD, DM, Hyperlipidemia, Hypertension, Malignancy Patient has suicidal ideation: No Patient has homicidal ideation: No - Past Medical History Cardiac Medical History: Reports: Hx Hypertension - on meds Denies: Hx Coronary Artery Disease, Hx Heart Attack Pulmonary Medical History: Reports: Hx Asthma - as child, Hx Pneumonia Denies: Hx Bronchitis, Hx COPD Neurological Medical History: Reports: Hx Migraine. Denies: Hx Cerebrovascular Accident, Hx Seizures Renal/ Medical History: Reports: Hx Kidney Stones. Denies: Hx Peritoneal Di alysis Musculoskeletal Medical History: Reports Hx Arthritis - rheumatoid, Reports Hx Musculoskeletal Deformity, Reports Hx Musculoskeletal Trauma Traumatic Medical History: Reports: Hx Fractures Past Surgical History: Reports: Hx Appendectomy, Hx Section, Hx Genitourinary Surgery - bladder and ureter reimplantation, Hx Orthopedic Surgery - bunion, Other - Kyphoplasty 12/2016 - Immunizations Immunizations up to date: Yes Hx Diphtheria, Pertussis, Tetanus Vaccination: Yes Review of Systems - Review of Systems Constitutional: Fever, Malaise EENT: No symptoms reported Cardiovascular: No symptoms reported Respiratory: No symptoms reported Gastrointestinal: See HPI Genitourinary: See HPI Female Genitourinary: See HPI Musculoskeletal: No symptoms reported Skin: No symptoms reported Neurological/Psychological: No symptoms reported Physical Exam - Vital signs Vitals: Temp Pulse Resp BP Pulse Ox 99.0 F 104 H 16 153/91 H 100 12/02/18 13:54 12/02/18 13:54 12/02/18 13:54 12/02/18 13:54 12/02/18 13:54 - Notes Notes: Vital signs reviewed, please refer to chart. Patient is mildly anxious in appearance. Patient is normocephalic, atraumatic. Pupils equal round, reactive to light. Neck is supple without meningismus. Heart is regular rate and rhythm. Lungs are clear to auscultation bilaterally. Abdomen is soft, nonten moira, normoactive bowel sounds throughout. Extremities without cyanosis, clubbing, edema. Peripheral pulses are equal. Skin is warm and dry. Patient is awake, alert, neurological exam is nonfocal. Sternal genital exam is performed, found to be without lesions. She does have a small urethrocele without any active bleeding noted. No vaginal discharge. No erythema noted of the external genitalia. Course - Re-evaluation Re-evalutation: 12/02/18 17:29 Patient presents to the emergency department for evaluation. Laboratory i nvestigations ordered as per triage. She is found to have a urinary tract infection with large leukocyte esterase. I did review prior urine cultures. She does have a history of Pseudomonas and multiple other bacteria. She states she usually does well with Rocephin, that is what her urologist usually gets her initially. I do suspect that some of her pain is secondary to a small urethrocele. This was explained to the patient. I will center with a small amount of pain medication and nausea medication. She is also given an antibiotic, Cipro was chosen secondary to the history of Pseudomonas and Klebsiella. Patient was mildly tachycardic here, but her temperature and white count as well as normal respiratory rate reveal she is not currently septic. We will send her home with symptom medic medications and antibiotics, she is to keep her urology appointment as scheduled. She is to return to the ED with worsening or new concerning symptoms of any sort. - Vital Signs Vital signs: Temp Pulse Resp BP Pulse Ox 99.0 F 104 H 16 153/91 H 100 12/02/18 13:54 12/02/18 13:54 12/02/18 13:54 12/02/18 13:54 12/02/18 13:54 - Laboratory Result Diagrams: 12/02/18 14:40 12/02/18 14:40 Laboratory results interpreted by me: 12/02/18 12/02/18 14:40 15:01 Potassium 3.3 L Ur Leukocyte Esterase LARGE H Discharge - Discharge Clinical Impression: Urinary tract infection, Urethrocele, female, Nausea & vomiting Condition: Stable Instructions: Urinary Tract Infection ([facility]) Additional Instructions: Take antibiotic as prescribed until gone. Take pain and nausea medication as needed. Follow-up with your urologist as scheduled on Thursday. Return to the emergency department with worsening or new concerning symptoms of any sort. Referrals: BRYANNA GARCIA MD [NO LOCAL MD] - Follow up as needed
[2018-12-02 17:57] VITALS: BP 117/83
== END 2018-12-02 17:57 | disposition home or self-care (01) ==
LOC: ER 13:33
DX: N39.0 Urinary tract infection, site not specified (principal); N81.0 Urethrocele; R11.2 Nausea with vomiting, unspecified; R10.2 Pelvic and perineal pain; I10 Essential (primary) hypertension; Z87.442 Personal history of urinary calculi; Z88.9 Allergy status to unspecified drugs, medicaments and biological substances; Z88.0 Allergy status to penicillin; Z91.040 Latex allergy status
CPT/HCPCS: 99284; 96372; 36415; 85025; 80053; 81001; S0119; J3490; J0696

== ENCOUNTER → 2018-12-24 | Outpatient (CLI) | payer BC | LOC: LAB 13:22 | PROVIDERS: ATTEND Urology | DX: N39.0 Urinary tract infection, site not specified (principal) | CPT/HCPCS: 87086 ==

== ENCOUNTER → 2019-01-08 | Outpatient (CLI) | payer BC | LOC: LAB 12:15 | PROVIDERS: ATTEND Urology | DX: N39.0 Urinary tract infection, site not specified (principal) | CPT/HCPCS: 87086; 87088; 87186 ==

== ENCOUNTER → 2019-04-03 | Outpatient (CLI) | payer BC | LOC: LAB 18:44 | PROVIDERS: ATTEND Urology | DX: N39.0 Urinary tract infection, site not specified (principal) | CPT/HCPCS: 87086; 87088; 87186 ==

== ENCOUNTER 2019-05-02 05:36 | Day surgery (SDC) | payer BC ==
[2019-04-28 11:57] LABS: HEMATOCRIT 36.3 % (36.0-47.0); MEAN CORPUSCULAR HEMOGLOBIN 29.5 pg (27.0-33.4); MEAN CORPUSCULAR HGB CONC 33.2 g/dL (32.0-36.0); MEAN CORPUSCULAR VOLUME 89 fl (80-97); PLATELET COUNT 215 10^3/uL (150-450); RED BLOOD COUNT 4.07 10^6/uL (3.72-5.28); WHITE BLOOD COUNT 6.7 10^3/uL (4.0-10.5)
[2019-04-28 12:02] LABS: AMORPHOUS SEDIMENT,URINE TRACE /HPF; APPEARANCE,URINE CLOUDY; BILIRUBIN,URINE NEGATIVE (NEGATIVE); COLOR,URINE YELLOW; GLUCOSE, URINE NEGATIVE (NEGATIVE); KETONES,URINE NEGATIVE (NEGATIVE); LEUKOCYTE ESTERASE,URINE LARGE (NEGATIVE); NITRITE,URINE POSITIVE (NEGATIVE); PROTEIN,URINE NEGATIVE (NEGATIVE); URINE SPECIFIC GRAVITY 1.009; UROBILINOGEN,URINE NEGATIVE mg/dL (<2.0)
[2019-04-28 12:23] LABS: ALANINE AMINOTRANSFERASE 24 U/L (9-52); ALBUMIN 4.8 g/dL (3.5-5.0); ALKALINE PHOSPHATASE 74 U/L (38-126); ANION GAP 10 (5-19); ASPARTATE AMINO TRANSFERASE 39 U/L (14-36); BILIRUBIN,DIRECT 0.3 mg/dL (0.0-0.4); BILIRUBIN,TOTAL 0.5 mg/dL (0.2-1.3); BLOOD UREA NITROGEN 12 mg/dL (7-20); CALCIUM 10.1 mg/dL (8.4-10.2); CARBON DIOXIDE 26 mmol/L (22-30); CHLORIDE 103 mmol/L (98-107); GLUCOSE 93 mg/dL (75-110); POTASSIUM 5.1 mmol/L (3.6-5.0); TOTAL PROTEIN 7.7 g/dL (6.3-8.2)
[~2019-05-02 05:36] MED LIST changes: -CLINDAMYCIN 600 MG/D5W RTU 600 MG/50 ML RTUPB IV PRN; +GENTAMICIN SULFATE 80 MG in DEXTROSE 5%-WATER 100 ML IV PRN; -LACTATED RINGERS 1000 ML IV PRN; -LIDOCAINE 1% INJ-PF (10 MG/ML) 30 ML SDV ONE; +RINGERS SOLUTION,LACTATED 1,000 ML IV PRN
[2019-05-02] MEDS ORDERED: KETAMINE HCL INJ 500 MG/10 ML VIAL ONE (06:56)
[2019-05-02] MEDS ORDERED: FENTANYL CITRATE INJ/PF 100 MCG/2 ML AMPUL ONE (06:56)
[2019-05-02] MEDS ORDERED: PROPOFOL INJ 200 MG/20 ML VIAL IV ONE (06:57)
[2019-05-02] MEDS ORDERED: MIDAZOLAM 2 MG/2 ML INJ ONE (06:57)
[2019-05-02] MEDS ORDERED: HYDROMORPHONE HCL INJ/PF 2 MG/ML AMPULE ONE (06:57)
--- NOTE | 2019-05-02 07:01 | EKG REPORT ---
SEVERITY:- BORDERLINE ECG - SINUS RHYTHM PROBABLE LEFT ATRIAL ABNORMALITY BORDERLINE T ABNORMALITIES, ANT-LAT LEADS : Confirmed by: Robel Ferguson 02-May-2019 07:01:08
[2019-05-02] MEDS ORDERED: LIDOCAINE 1% INJ-PF (10 MG/ML) 30 ML SDV ONE (07:14)
[2019-05-02] MEDS ORDERED: LIDOCAINE 1%/EPINEPHRINE INJ 20 ML VIAL ONE (07:34)
[2019-05-02] MEDS ORDERED: LIDOCAINE 1%/EPINEPHRINE INJ 20 ML VIAL INJ ONE (07:48)
[2019-05-02] MEDS ORDERED: FENTANYL CITRATE INJ/PF 100 MCG/2 ML AMPUL IV PRN ×3 (07:51)
[2019-05-02] MEDS ORDERED: DIPHENHYDRAMINE HCL 50 MG/ML VIAL IV PRN (07:51)
[2019-05-02] MEDS ORDERED: NEOMY/BACITRAC ZN/POLY OINT 15 GM ONE (08:04)
[2019-05-02] MEDS: FENTANYL CITRATE INJ/PF 100 MCG/2 ML AMPUL ONE ×2 (08:30→08:35)
[2019-05-02] MEDS ORDERED: OXYCODONE-ACETAMINOPHEN 5-325 MG TABLET PO PRN ×2 (09:06→09:08)
[2019-05-02] MEDS ORDERED: PROMETHAZINE HCL INJ 25 MG/1 ML VIAL IV PRN (09:10)
[2019-05-02] MEDS ORDERED: OXYCODONE-ACETAMINOPHEN 5-325 MG TABLET ONE (09:13)
--- NOTE | 2019-05-02 09:15 | OPERATIVE REPORT E ---
Operative Report NAME: GISEL SO : 1965 AGE: 54Y DATE OF SURGERY: 05/02/2019 ROOM: PREOPERATIVE DIAGNOSIS: LEFT LABIA MINORA HYPERTROPHY. POSTOPERATIVE DIAGNOSIS: LEFT LABIA MINORA HYPERTROPHY. OPERATION: Excision of left labia minora hypertrophy with surgical repair. SURGEON: KRISTOFER CROSS M.D. ANESTHESIA: General and 1% Xylocaine with epinephrine. ESTIMATED BLOOD LOSS: About 20 mL. OPERATIVE FINDINGS: This is a 54-year-old female with left labial hypertrophy who was having problems with pain and discomfort with the excess labia rubbing with the underwear. Opted to have this excised. Was aware of the risks and benefits of this procedure. At the time of surgery, the vulva revealed left labia minora hypertrophy, right labia appeared to be normal and both the minora and majora, the left labia majora was normal. Vagina appeared to be normal. Urethra appeared to be normal. Cervix was normal. Uterus was midplane, not enlarged, adnexa was negative. OPERATIVE PROCEDURE: The patient was brought into the OR, placed on a table in a supine position, inducted under general anesthesia. Following this, she was repositioned in dorsal lithotomy position, prepped and draped in sterile fashion. The bladder was drained of about 250 mL of clear yellow urine and a pelvic under anesthesia was performed. Having accomplished this, attention was turned towards the left labia minora. The markings were carried out to try to simulate the normal right labia and we injected 1% Xylocaine with epinephrine approximately 1.5 mL. The incision was then carried out using a scalpel and dissection scissors. The area had some bleeding points. The Bovie was used to cauterize these. There was 1 bleeder that was clamped and tied with 3-0 Chromic. Having obtained hemostasis, the skin edges were brought together with subcuticular 4-0 Prolene. The patient tolerated the procedure well. Had an estimated blood loss of about 20 mL at most. Tolerated procedure well. Patient had triple antibiotics applied to the incision and the anesthesia was DC. Patient was placed back into supine position and transferred to recovery in satisfactory condition. DICTATING PHYSICIAN: KRISTOFER CROSS M.D. [id number] Y#: [id number] ID: [id number] JOB#: [id number] ACCT: [id number] cc:KRISTOFER CROSS M.D. >
[2019-05-02] MEDS ORDERED: GLYCOPYRROLATE 1 MG/5 ML VIAL ONE (12:36)
[2019-05-02] MEDS ORDERED: ONDANSETRON HCL INJ/PF 4 MG/2 ML SDV ONE (12:36)
[2019-05-02 12:41] VITALS: BP 129/84
== END 2019-05-02 12:10 | disposition home or self-care (01) ==
LOC: OROUT 05:36
PROVIDERS: ATTEND Obstetrics & Gynecology
DX: N90.69 Other specified hypertrophy of vulva (principal); J45.909 Unspecified asthma, uncomplicated; M32.9 Systemic lupus erythematosus, unspecified
CPT/HCPCS: 36415; 85027; 80053; 81001; 93005; 93010; 56620; J2250; J3010; J1580; J3490 ×3; J1170; J2405; J7060; J2704; 940

== ENCOUNTER 2019-05-15 15:39 | Emergency (ER) | payer BC ==
[2019-05-15 16:41] LABS: ABSOLUTE EOSINOPHILS # (AUTO) 0.3 10^3/uL (0.0-0.6); ABSOLUTE LYMPHOCYTES (AUTO) 2.2 10^3/uL (0.5-4.7); ABSOLUTE MONOCYTES (AUTO) 0.5 10^3/uL (0.1-1.4); ABSOLUTE NEUT (AUTO) 3.3 10^3/uL (1.7-8.2); BASOPHILS % (AUTO) 0.8 % (0-2); EOSINOPHILS % (AUTO) 5.3 % (0-6); HEMATOCRIT 36.2 % (36.0-47.0); HEMOGLOBIN 11.9 g/dL (12.0-15.5); MEAN CORPUSCULAR HEMOGLOBIN 29.3 pg (27.0-33.4); MEAN CORPUSCULAR VOLUME 89 fl (80-97); MONOCYTES % (AUTO) 7.6 % (3-13); PLATELET COUNT 270 10^3/uL (150-450); RED BLOOD COUNT 4.07 10^6/uL (3.72-5.28); RED CELL DISTRIBUTION WIDTH 12.9 % (11.5-14.0); SEGMENTED NEUTROPHILS % (AUTO) 52.3 % (42-78); TOTAL CELLS COUNTED % (AUTO) 100 %; WHITE BLOOD COUNT 6.4 10^3/uL (4.0-10.5)
[2019-05-15 16:47] LABS: INTERNATIONAL RATION (INR) 0.96; PROTHROMBIN TIME 12.8 SEC (11.4-15.4)
[2019-05-15 16:49] LABS: ALBUMIN 4.9 g/dL (3.5-5.0); ALKALINE PHOSPHATASE 87 U/L (38-126); ANION GAP 13 (5-19); ASPARTATE AMINO TRANSFERASE 28 U/L (14-36); BILIRUBIN,DIRECT 0.4 mg/dL (0.0-0.4); BILIRUBIN,TOTAL 0.4 mg/dL (0.2-1.3); BLOOD UREA NITROGEN 15 mg/dL (7-20); CARBON DIOXIDE 26 mmol/L (22-30); CHLORIDE 99 mmol/L (98-107); GLUCOSE 92 mg/dL (75-110); POTASSIUM 3.8 mmol/L (3.6-5.0); TOTAL PROTEIN 7.9 g/dL (6.3-8.2)
[2019-05-15 16:52] LABS: VENOUS BLOOD BASE EXCESS -1.2 mmol/L; VENOUS BLOOD HCO3 26.5 mmol/L (20-32); VENOUS BLOOD PCO2 57.7 mmHg (35-63); VENOUS BLOOD PH 7.28 (7.30-7.42)
[2019-05-15] MEDS ORDERED: NORMAL SALINE 1000 ML 1,000 ML IV ONE (17:08)
[2019-05-15] MEDS ORDERED: MORPHINE SULFATE 10 MG/ML INJ IV ONE (17:08)
[2019-05-15] MEDS ORDERED: ONDANSETRON HCL INJ/PF 4 MG/2 ML SDV IV ONE (17:08)
--- NOTE | 2019-05-15 17:11 | ER Document Report ---
ED Medical Screen (RME) - General Chief Complaint: Post Surgical Pain Stated Complaint: SURGICAL INFECTION Time Seen by Provider: 05/15/19 17:00 Primary Care Provider: KIRSTOFER CROSS MD [Primary Care Provider] - Follow up as needed Notes: Patient is a 54-year-old female who had a labia plasty for labia minora hyperplasia 2 weeks ago, presents the emergency department with a chief complaint of lower abdominal pain. Patient had her sutures taken out 3 days ago and was placed on Macrobid for urinary tract infection. Patient admits to have a fever of 99.5 at home. She also woke up this morning and felt like she was weak. Exam: Vaginal discharge noted. I have greeted and performed a rapid initial assessment of this patient. A comprehensive ED assessment and evaluation of the patient, analysis of test results and completion of medical decision making process will be conducted by an additional ED providers. TRAVEL OUTSIDE OF THE [place] IN LAST 30 DAYS: No - Related Data Allergies/Adverse Reactions: adhesive tape Allergy (Severe, Verified 05/02/19 06:18) Blisters amoxicillin trihydrate [From Augmentin] Allergy (Severe, Verified 05/02/19 06:18) severe migraine ezetimibe [From Vytorin] Allergy (Severe, Verified 05/02/19 06:18) muscle pain,increased creatine latex [Latex] Allergy (Severe, Verified 05/02/19 06:18) Blisters Potassium Clavulanate * [From Augmentin] Allergy (Severe, Verified 05/02/19 06:18) severe migraine simvastatin [From Vytorin] Allergy (Severe, Verified 05/02/19 06:18) muscle pain,increased creatine magnesium sulfate [Magnesium Sulfate] Allergy (Intermediate, Verified 05/02/19 06:18) panic, nervousness, skin crawling dexamethasone [From Decadron] Allergy (Mild, Verified 05/02/19 06:18) burning in bladder, skin itching Iodinated Contrast- Oral and IV Dye [IV Dye, Iodine Containing] Allergy (Mild, Verified 05/02/19 06:18) Hives prochlorperazine edisylate [From Compazine] Allergy (Mild, Verified 05/02/19 06:18) makes heart race Jtdflbx-Tce-Leg Reductase Inhibitor Allergy (Mild, Verified 05/02/19 06:18) muscle pain and increased creatinine Opzwpflm-8-YE0 Antimigraine Agents Allergy (Mild, Verified 05/02/19 06:18) makes heart race valsartan Allergy (Verified 05/02/19 06:18) Past Medical History - Past Medical History Cardiac Medical History: Reports: Hx Hypertension - on meds Denies: Hx Coronary Artery Disease, Hx Heart Attack Pulmonary Medical History: Reports: Hx Asthma - as child, Hx Pneumonia Denies: Hx Bronchitis, Hx COPD Neurological Medical History: Reports: Hx Migraine. Denies: Hx Cerebrovascular Accident, Hx Seizures Renal/ Medical History: Reports: Hx Kidney Stones. Denies: Hx Peritoneal Dialysis Musculoskeltal Medical History: Reports Hx Arthritis - rheumatoid, Reports Hx Musculoskeletal Deformity, Reports Hx Musculoskeletal Trauma Traumatic Medical History: Reports: Hx Fractures Past Surgical History: Reports: Hx Appendectomy, Hx Section, Hx Genitourinary Surgery - bladder and ureter reimplantation, Hx Orthopedic Surgery - bunion, Other - Kyphoplasty 12/2016 - Immunizations Immunizations up to date: Yes Hx Diphtheria, Pertussis, Tetanus Vaccination: Yes Physical Exam - Vital signs Vitals: Temp Pulse Resp BP Pulse Ox 98.6 F 122 H 22 H 127/92 H 97 05/15/19 15:48 05/15/19 15:48 05/15/19 15:48 05/15/19 15:48 05/15/19 15:48 Course - Vital Signs Vital signs: Temp Pulse Resp BP Pulse Ox 98.6 F 122 H 22 H 127/92 H 97 05/15/19 15:48 05/15/19 15:48 05/15/19 15:48 05/15/19 15:48 05/15/19 15:48 - Laboratory Result Diagrams: 05/15/19 16:03 05/15/19 16:03 Laboratory results interpreted by me: 05/15/19 05/15/19 05/15/19 16:03 16:03 16:03 Hgb 11.9 L VBG pH 7.28 L Est GFR (Non-Af Amer) 53 L Doctor's Discharge - Discharge Referrals: KRISTOFER CROSS MD [Primary Care Provider] - Follow up as needed
--- NOTE | 2019-05-15 17:14 | RADIOLOGY REPORT (SQ) ---
EXAM DESCRIPTION: CHEST SINGLE VIEW COMPLETED DATE/TIME: 05/15/2019 4:54 pm REASON FOR STUDY: sepsis alert 1 COMPARISON: 11/10/2016. EXAM PARAMETERS: NUMBER OF VIEWS: One view. TECHNIQUE: Single frontal radiographic view of the chest acquired. RADIATION DOSE: NA LIMITATIONS: None. FINDINGS: LUNGS AND PLEURA: No opacities, masses or pneumothorax. No pleural effusion. MEDIASTINUM AND HILAR STRUCTURES: No masses. Contour normal. HEART AND VASCULAR STRUCTURES: Heart normal in size. Normal vasculature. BONES: No acute findings. HARDWARE: None in the chest. OTHER: No other significant finding. IMPRESSION: NO ACUTE RADIOGRAPHIC FINDING IN THE CHEST. TECHNICAL DOCUMENTATION: JOB ID: [id number] [email or web address]- All Rights Reserved Reading location - IP/workstation name: [email or web address]
[2019-05-15] MEDS ORDERED: DIPHENHYDRAMINE HCL 50 MG/ML VIAL IV ONE ×2 (17:47→19:40)
[2019-05-15] MEDS ORDERED: METHYLPREDNISOLONE INJ 125 MG/2 ML SDV IV ONE (17:47)
[2019-05-15] MEDS ORDERED: FAMOTIDINE INJ/PF 20 MG/2 ML SDV IV ONE (17:47)
[2019-05-15] MEDS ORDERED: LIDOCAINE 2% URO-JET 5 ML KIT MM ONE (17:51)
--- NOTE | 2019-05-15 17:54 | ER Document Report ---
ED General - General Chief Complaint: Post Surgical Pain Stated Complaint: SURGICAL INFECTION Time Seen by Provider: 05/15/19 17:00 Primary Care Provider: KRISTOFER CROSS MD [Primary Care Provider] - Follow up as needed Notes: 54-year-old female presenting the emergency department complaining of vaginal and lower abdominal pain. Patient states that she has been having this lower abdominal and vaginal pain since approximately December however 2 weeks ago she had a labioplasty of her left labium minora, pain had improved until this past when Dr. Cross remove the stitches and she states she has been having increasing pain in her vagina and lower abdomen since then. Patient states that last night she had a fever however it was under 100 degrees and at this morning she has been having further increasing pain. Pain radiates up to her umbilicus and into her back. Pain is associated with a rash around her vagina and going to her rectum. Patient feels like there is heat radiating up to the level of her umbilicus as well but denies any rash there. Of note patient has multiple comorbidities including lupus, scleroderma and rheumatoid arthritis. Patient also has neurogenic bladder and has to self cath 4-6 times a day. Patient was started on gentamicin before the surgery and Macrobid on . Patient has not had a CAT scan of the abdomen for this abdominal pain is been going on since December. TRAVEL OUTSIDE OF THE [place] IN LAST 30 DAYS: No - Related Data Allergies/Adverse Reactions: adhesive tape Allergy (Severe, Verified 05/02/19 06:18) Blisters amoxicillin trihydrate [From Augmentin] Allergy (Severe, Verified 05/02/19 06 :18) severe migraine ezetimibe [From Vytorin] Allergy (Severe, Verified 05/02/19 06:18) muscle pain,increased creatine latex [Latex] Allergy (Severe, Verified 05/02/19 06:18) Blisters Potassium Clavulanate * [From Augmentin] Allergy (Severe, Verified 05/02/19 06:18) severe migraine simvastatin [From Vytorin] Allergy (Severe, Verified 05/02/19 06:18) muscle pain,increased creatine magnesium sulfate [Magnesium Sulfate] Allergy (Intermediate, Verified 05/02/19 06:18) panic, nervousness, skin crawling dexamethasone [From Decadron] Allergy (Mild, Verified 05/02/19 06:18) burning in bladder, skin itching Iodinated Contrast- Oral and IV Dye [IV Dye, Iodine Containing] Allergy (Mild, Verified 05/02/19 06:18) Hives prochlorperazine edisylate [From Compazine] Allergy (Mild, Verified 05/02/19 06:18) makes heart race Nnwisqz-Jgj-Ovb Reductase Inhibitor Allergy (Mild, Verified 05/02/19 06:18) muscle pain and increased creatinine Boiltkhl-9-LS8 Antimigraine Agents Allergy (Mild, Verified 05/02/19 06:18) makes heart race valsartan Allergy (Verified 05/02/19 06:18) Past Medical History - General Information source: Patient - Social History Smoking Status: Never Smoker Frequency of alcohol use: None Drug Abuse: None Family History: Arthritis, CAD, DM, Hyperlipidemia, Hypertension, Malignancy Patient has suicidal ideation: No Patient has homicidal ideation: No - Past Medical History Cardiac Medical History: Reports: Hx Hypertension - on meds Denies: Hx Coronary Artery Disease, Hx Heart Attack Pulmonary Medical History: Reports: Hx Asthma - as child, Hx Pneumonia Denies: Hx Bronchitis, Hx COPD Neurological Medical History: Reports: Hx Migraine. Denies: Hx Cerebrovascular Accident, Hx Seizures Renal/ Medical History: Reports: Hx Kidney Stones. Denies: Hx Peritoneal Dialysis Musculoskeletal Medical History: Reports Hx Arthritis - rheumatoid, Reports Hx Musculoskeletal Deformity, Reports Hx Musculoskeletal Trauma Traumatic Medical History: Reports: Hx Fractures Past Surgical History: Reports: Hx Appendectomy, Hx Section, Hx Genitourinary Surgery - bladder and ureter reimplantation, Hx Kidney (Renal Surgery) - lithotripsy, Hx Orthopedic Surgery - bunion, Other - Kyphoplasty 12/2016 - Immunizations Immunizations up to date: Yes Hx Diphtheria, Pertussis, Tetanus Vaccination: Yes Review of Systems - Review of Systems Constitutional: See HPI, Fever - Questionable, patient states that it was less than 100 degrees. EENT: No symptoms reported Cardiovascular: No symptoms reported Gastrointestinal: See HPI Genitourinary: See HPI Female Genitourinary: See HPI -: Yes All other systems reviewed and negative Physical Exam - Vital signs Vitals: Temp Pulse Resp BP Pulse Ox 98.6 F 122 H 22 H 127/92 H 97 05/15/19 15:48 05/15/19 15:48 05/15/19 15:48 05/15/19 15:48 05/15/19 15:48 Interpretation: Tachycardic - Notes Notes: GENERAL: Alert, interacts well. No acute distress. HEAD: Normocephalic, atraumatic EYES: Pupils equal, round and reactive to light, extraocular movements intact. ENT: Oral mucosa moist, tongue midline. NECK: Full range of motion, supple, trachea midline. LUNGS: Clear to auscultation bilaterally, no wheezes, rales or rhonchi, no respiratory distress. HEART: Regular rate and rhythm, no murmurs, gallops, rubs. ABDOMEN: Soft, nontender, nondistended, bowel sounds present in all 4 quadrants. EXTREMITIES: Moves all 4 extremities spontaneously, no edema, radial and dorsalis pedis pulses 2/4 bilaterally. No cyanosis. NEUROLOGICAL: Alert and oriented x3, normal speech. PSYCH: Normal mood, normal affect. SKIN: Warm, Dry, erythema noted around the internal and external labia. : Erythema to the external and internal labia, no blistering, no sloughing, there is thick white discharge coming from the vagina. Left labia minora appears somewhat adhered or fused to the labia majora. This was not investigated any further issues immediately postop. Course - Re-evaluation Re-evalutation: 05/15/19 20:59 CT scan shows small amount of air in the urinary bladder that may be related to recent catheterization, does not show any acute abnormality in the subcu tissues of the perineum, there is a large amount of stool in the colon. Patient does admit that she has trouble with constipation, discussed with patient that she should consider using something like MiraLAX on a regular basis. 05/15/19 20:59 CBC shows mild anemia with hemoglobin 11.9, coags normal, venous blood gas shows a suppressed low pH at 7.28 which is not consistent with the rest of her presentation, CMP unremarkable, troponin normal, urinalysis shows no sign of infection. Wet prep shows yeast but no signs of trichomonas or bacterial vaginosis, gonorrhea and chlamydia swabs are negative. Chest x-ray shows no acute process. Blood culture and urine cultures are pending. At this time I do not have an answer as to why this patient's pain has been going on since December improved with surgery and then worsened after the stitches were taken out however the only acute problem that I see to treat right now is constipation and vulvovaginal yeast infection. Patient is agreeable to taking MiraLAX and Diflucan and being discharged home. She will follow-up with Dr. Cross as an outpatient. - Vital Signs Vital signs: Temp Pulse Resp BP Pulse Ox 98.6 F 122 H 17 118/87 H 100 05/15/19 20:07 05/15/19 15:48 05/15/19 20:07 05/15/19 20:07 05/15/19 20:07 - Laboratory Result Diagrams: 05/15/19 16:03 05/15/19 16:03 Laboratory results interpreted by me: 05/15/19 05/15/19 05/15/19 16:03 16:03 16:03 Hgb 11.9 L VBG pH 7.28 L Est GFR (Non-Af Amer) 53 L - EKG Interpretation by Me Additional EKG results interpreted by me: 05/15/19 21:00 EKG shows sinus tachycardia at a rate of 106, normal axis, normal intervals, no ST segment elevations or depressions per my interpretation. Discharge - Discharge Clinical Impression: Vulvovaginal candidiasis, Chronic bilateral lower abdominal pain Constipation Qualifiers: Constipation type: unspecified constipation type Qualified Code(s): K59.00 - Constipation, unspecified Condition: Stable Disposition: HOME, SELF-CARE Additional Instructions: Please dissolve 1 scoop of MiraLAX in a glass of water once a day to treat constipation. You may increase to twice a day if needed to create soft bowel movements and you may decrease to every other day if you develop diarrhea. We did not see any signs of bacterial infection around her vagina today. We did see signs of yeast infection. We treated you with 1 dose of Diflucan 150 mg by mouth once. If you are still having symptoms in a week please take the second dose. Please follow-up with Dr. Cross sometime in the next week. Please return if you develop another fever of 100.4 or greater. Prescriptions: Fluconazole [Diflucan] 150 mg PO ONCE PRN #1 tablet PRN Reason: Referrals: KRISTOFER CROSS MD [Primary Care Provider] - Follow up as needed
--- NOTE | 2019-05-15 17:58 | EKG REPORT ---
SEVERITY:- ABNORMAL ECG - SINUS TACHYCARDIA NONSPECIFIC INFERIOR ST-T CHANGES : Confirmed by: Dwayne Hernandez MD 15-May-2019 17:57:20
[2019-05-15 17:59] LABS: RBCS (WET MOUNT) FEW RBCS SEEN; T.VAGINALIS (WET MOUNT) NO TRICHOMONAS SEEN; WBCS (WET MOUNT) RARE WBCS SEEN; YEAST (WET MOUNT) YEAST SEEN
[2019-05-15 18:31] LABS: APPEARANCE,URINE CLEAR; BILIRUBIN,URINE NEGATIVE (NEGATIVE); COLOR,URINE YELLOW; GLUCOSE, URINE NEGATIVE (NEGATIVE); KETONES,URINE NEGATIVE (NEGATIVE); LEUKOCYTE ESTERASE,URINE NEGATIVE (NEGATIVE); NITRITE,URINE NEGATIVE (NEGATIVE); PROTEIN,URINE NEGATIVE (NEGATIVE); URINE SPECIFIC GRAVITY 1.008; UROBILINOGEN,URINE NEGATIVE mg/dL (<2.0)
[2019-05-15 19:30] LABS: CHLAM PCR NOT DETECTED (NOT DETECT)
[2019-05-15] MEDS ORDERED: FLUCONAZOLE 100 MG TABLET PO ONE (19:40)
[2019-05-15 20:24] VITALS: BP 118/87
--- NOTE | 2019-05-15 20:41 | RADIOLOGY REPORT (SQ) ---
EXAM DESCRIPTION: CT ABDOMEN PELVIS WITH IV CONTRAST COMPLETED DATE/TME: 05/15/2019 17:47 CLINICAL HISTORY: low abd pain, post-op vaginal surgery COMPARISON: 12/24/2016 TECHNIQUE: CT of the abdomen and pelvis performed following IV administration of 59 mL of Omnipaque 350. DLP: 540.66 mGycm FINDINGS: Lung Bases: The visualized lung bases are clear. Bones: No destructive bone lesions identified. Prior T12 vertebroplasty. Abdomen: Liver: The liver has normal size and density. No intrahepatic mass or biliary dilatation. Gallbladder: No calcified gallstones. Spleen, Pancreas, and Adrenal Glands: The spleen, pancreas, and adrenal glands are unremarkable. Kidneys: The kidneys have normal size and contour without evidence of solid mass or hydronephrosis. Punctate nonobstructing right nephrolithiasis. Vasculature: The aorta and IVC have normal caliber and position. Retroaortic left renal vein. The portal vein is patent. The proximal visceral and renal arteries are patent. Stomach: The stomach and duodenum have normal course. Other: No free intraperitoneal air. No free fluid or lymphadenopathy. Calcified subcutaneous gluteal granulomas. Pelvis: Bladder: Small amount of air in the urinary bladder may be related to recent catheterization. Bowel: No dilated loops of large or small bowel. Large amount stool in the colon. Appendix: Not identified. Pelvis: Uterus is not enlarged. No acute abnormality identified in the subcutaneous soft tissues of the perineum. IMPRESSION: 1. No acute inflammatory or obstructive process identified. 2. Large amount stool throughout the colon. This exam was performed according to our departmental dose-optimization program, which includes automated exposure control, adjustment of the mA and/or kV according to patient size and/or use of iterative reconstruction technique.
== END 2019-05-15 21:13 | disposition home or self-care (01) ==
LOC: ER 15:39
DX: B37.3 Candidiasis of vulva and vagina (principal); K59.00 Constipation, unspecified; R10.2 Pelvic and perineal pain; G89.29 Other chronic pain; N31.9 Neuromuscular dysfunction of bladder, unspecified; I10 Essential (primary) hypertension; D64.9 Anemia, unspecified; Z98.890 Other specified postprocedural states; Z91.048 Other nonmedicinal substance allergy status; Z88.0 Allergy status to penicillin; Z91.040 Latex allergy status; Z88.8 Allergy status to other drugs, medicaments and biological substances; Z91.041 Radiographic dye allergy status
CPT/HCPCS: 93005; 96376; 99284; 96361; 51701; 96374; 96375; 36415; 87040; 87086; 87210; 85025; 85610; 80053; 81001; 84484; 87491; 87591; 82803; 83605; 71045; 74177; 93010; J1200; J2930; J2270; J2405; J7030; S0028

== ENCOUNTER 2019-06-11 18:58 | Emergency (ER) | payer BC ==
--- NOTE | 2019-06-11 19:22 | ER Document Report ---
ED Medical Screen (RME) - General Chief Complaint: Pelvic Pain Stated Complaint: ABDOMINAL PAIN Time Seen by Provider: 06/11/19 19:14 Primary Care Provider: KRISTOFER CROSS MD [Primary Care Provider] - Follow up as needed Mode of Arrival: Wheelchair Information source: Patient Notes: 54-year-old female presents to ED for complaint of severe pelvic floor pain. She states her pelvic floor feels like it is on fire. She does have a very severe chronic pelvic floor pain history is well as interstitial cystitis lupus scleroderma and multiple others autoimmune diseases. She states she is also having right hip pain. She states she self caths and did a urine earlier today and it did not show infection. She states she is tried multiple medications today and has not had any relief from the pain. She did receive Zofran Dilaudid and IV fluids on her way in in the EMS. I have greeted and performed a rapid initial assessment of this patient. A comprehensive ED assessment and evaluation of the patient, analysis of test results and completion of medical decision making process will be conducted by an additional ED providers. TRAVEL OUTSIDE OF THE [place] IN LAST 30 DAYS: No - Related Data Allergies/Adverse Reactions: adhesive tape Allergy (Severe, Verified 05/02/19 06:18) Blisters amoxicillin trihydrate [From Augmentin] Allergy (Severe, Verified 05/02/19 06:18) severe migraine ezetimibe [From Vytorin] Allergy (Severe, Verified 05/02/19 06:18) muscle pain,increased creatine latex [Latex] Allergy (Severe, Verified 05/02/19 06:18) Blisters Potassium Clavulanate * [From Augmentin] Allergy (Severe, Verified 05/02/19 06:18) severe migraine simvastatin [From Vytorin] Allergy (Severe, Verified 05/02/19 06:18) muscle pain,increased creatine magnesium sulfate [Magnesium Sulfate] Allergy (Intermediate, Verified 05/02/19 06:18) panic, nervousness, skin crawling dexamethasone [From Decadron] Allergy (Mild, Verified 05/02/19 06:18) burning in bladder, skin itching Iodinated Contrast Media [IV Dye, Iodine Containing] Allergy (Mild, Verified 05/02/19 06:18) Hives prochlorperazine edisylate [From Compazine] Allergy (Mild, Verified 05/02/19 06:18) makes heart race Cjsyqtf-Prh-Hes Reductase Inhibitor Allergy (Mild, Verified 05/02/19 06:18) muscle pain and increased creatinine [id number] Antimigraine Agents Allergy (Mild, Verified 05/02/19 06:18) makes heart race valsartan Allergy (Verified 05/02/19 06:18) Past Medical History - Past Medical History Cardiac Medical History: Reports: Hx Hypertension - on meds Denies: Hx Coronary Artery Disease, Hx Heart Attack Pulmonary Medical History: Reports: Hx Asthma - as child, Hx Pneumonia Denies: Hx Bronchitis, Hx COPD Neurological Medical History: Reports: Hx Migraine. Denies: Hx Cerebrovascular Accident, Hx Seizures Renal/ Medical History: Reports: Hx Kidney Stones. Denies: Hx Peritoneal Dialysis Musculoskeltal Medical History: Reports Hx Arthritis - rheumatoid, Reports Hx Musculoskeletal Deformity, Reports Hx Musculoskeletal Trauma Traumatic Medical History: Reports: Hx Fractures Past Surgical History: Reports: Hx Appendectomy, Hx Section, Hx Genitourinary Surgery - bladder and ureter reimplantation, Hx Kidney (Renal Surgery) - lithotripsy, Hx Orthopedic Surgery - bunion, Other - Kyphoplasty 12/2016 - Immunizations Immunizations up to date: Yes Hx Diphtheria, Pertussis, Tetanus Vaccination: Yes Physical Exam - Vital signs Vitals: Temp Pulse Resp BP Pulse Ox 98.8 F 104 H 18 117/98 H 97 06/11/19 19:04 06/11/19 19:04 06/11/19 19:04 06/11/19 19:04 06/11/19 19:04 Course - Vital Signs Vital signs: Temp Pulse Resp BP Pulse Ox 98.8 F 104 H 18 117/98 H 97 06/11/19 19:04 06/11/19 19:04 06/11/19 19:04 06/11/19 19:04 06/11/19 19:04 Doctor's Discharge - Discharge Referrals: KRISTOFER CROSS MD [Primary Care Provider] - Follow up as needed
[2019-06-11 19:53] LABS: ABSOLUTE LYMPHOCYTES (AUTO) 0.9 10^3/uL (0.5-4.7); ABSOLUTE MONOCYTES (AUTO) 0.3 10^3/uL (0.1-1.4); ABSOLUTE NEUT (AUTO) 2.7 10^3/uL (1.7-8.2); BASOPHILS % (AUTO) 1.1 % (0-2); EOSINOPHILS % (AUTO) 0.6 % (0-6); HEMATOCRIT 34.9 % (36.0-47.0); HEMOGLOBIN 11.7 g/dL (12.0-15.5); LYMPHOCYTES % (AUTO) 22.9 % (13-45); MEAN CORPUSCULAR HEMOGLOBIN 29.1 pg (27.0-33.4); MEAN CORPUSCULAR HGB CONC 33.5 g/dL (32.0-36.0); MEAN CORPUSCULAR VOLUME 87 fl (80-97); MONOCYTES % (AUTO) 7.4 % (3-13); PLATELET COUNT 239 10^3/uL (150-450); RED BLOOD COUNT 4.01 10^6/uL (3.72-5.28); RED CELL DISTRIBUTION WIDTH 13.6 % (11.5-14.0); TOTAL CELLS COUNTED % (AUTO) 100 %
[2019-06-11 19:55] LABS: APPEARANCE,URINE SLIGHTLY-CLOUDY; BILIRUBIN,URINE NEGATIVE (NEGATIVE); COLOR,URINE YELLOW; GLUCOSE, URINE NEGATIVE (NEGATIVE); KETONES,URINE NEGATIVE (NEGATIVE); LEUKOCYTE ESTERASE,URINE LARGE (NEGATIVE); NITRITE,URINE NEGATIVE (NEGATIVE); PROTEIN,URINE NEGATIVE (NEGATIVE); URINE SPECIFIC GRAVITY 1.003; UROBILINOGEN,URINE NEGATIVE mg/dL (<2.0)
[2019-06-11 20:15] LABS: ALBUMIN 4.5 g/dL (3.5-5.0); ALKALINE PHOSPHATASE 73 U/L (38-126); ANION GAP 10 (5-19); ASPARTATE AMINO TRANSFERASE 22 U/L (14-36); BILIRUBIN,DIRECT 0.3 mg/dL (0.0-0.4); BILIRUBIN,TOTAL 0.4 mg/dL (0.2-1.3); BLOOD UREA NITROGEN 8 mg/dL (7-20); CALCIUM 10.1 mg/dL (8.4-10.2); CARBON DIOXIDE 25 mmol/L (22-30); CHLORIDE 105 mmol/L (98-107); GLUCOSE 99 mg/dL (75-110); POTASSIUM 3.7 mmol/L (3.6-5.0); TOTAL PROTEIN 7.1 g/dL (6.3-8.2)
[2019-06-11] MEDS ORDERED: HYDROMORPHONE HCL INJ/PF 2 MG/ML AMPULE IV ONE (21:59)
--- NOTE | 2019-06-11 22:04 | ER Document Report ---
ED GI/ - General Chief Complaint: Pelvic Pain Stated Complaint: ABDOMINAL PAIN Time Seen by Provider: 06/11/19 19:14 Primary Care Provider: KRISTOFER CROSS MD [Primary Care Provider] - Follow up as needed Mode of Arrival: Wheelchair Notes: Patient is a 54-year-old female that comes emergency department for chief complaint of severe pain in her pelvis and right hip area, she states it feels like her pelvic floor is on fire with a burning both on the outside and on the inside. She denies vomiting but she does report nausea. She states she tested her urine at home and it was not infected. No temperatures above 100 F recorded. She does have a history of chronic pelvic floor pain, ureter reimplantation as a child, labioplasty, lupus, rheumatoid arthritis, scleroderma, neurogenic bladder with self catheterizations. She also is a history of kidney stones. She does report some right flank pain radiating to the area in the lower back, she states this does not feel like a stone. She states a couple of days ago she had diarrhea but denies having any other bowel movements recently. She denies having bowel obstructions. She has had appendectomy. TRAVEL OUTSIDE OF THE [place] IN LAST 30 DAYS: No - Related Data Allergies/Adverse Reactions: adhesive tape Allergy (Severe, Verified 05/02/19 06:18) Blisters amoxicillin trihydrate [From Augmentin] Allergy (Severe, Verified 05/02/19 06:18) severe migraine ezetimibe [From Vytorin] Allergy (Severe, Verified 05/02/19 06:18) muscle pain,increased creatine latex [Latex] Allergy (Severe, Verified 05/02/19 06:18) Blisters Potassium Clavulanate * [From Augmentin] Allergy (Severe, Verified 05/02/19 06:18) severe migraine simvastatin [From Vytorin] Allergy (Severe, Verified 05/02/19 06:18) muscle pain,increased creatine magnesium sulfate [Magnesium Sulfate] Allergy (Intermediate, Verified 05/02/19 06:18) panic, nervousness, skin crawling dexamethasone [From Decadron] Allergy (Mild, Verified 05/02/19 06:18) burning in bladder, skin itching Iodinated Contrast Media [IV Dye, Iodine Containing] Allergy (Mild, Verified 05/02/19 06:18) Hives prochlorperazine edisylate [From Compazine] Allergy (Mild, Verified 05/02/19 06:18) makes heart race Lilmkml-Clh-Lhk Reductase Inhibitor Allergy (Mild, Verified 05/02/19 06:18) muscle pain and increased creatinine Mopuzlof-0-BE4 Antimigraine Agents Allergy (Mild, Verified 05/02/19 06:18) makes heart race valsartan Allergy (Verified 05/02/19 06:18) Past Medical History - General Information source: Patient - Social History Smoking Status: Never Smoker Frequency of alcohol use: None Drug Abuse: None Lives with: Family Family History: Arthritis, CAD, DM, Hyperlipidemia, Hypertension, Malignancy Patient has suicidal ideation: No Patient has homicidal ideation: No - Past Medical History Cardiac Medical History: Reports: Hx Hypertension - on meds Denies: Hx Coronary Artery Disease, Hx Heart Attack Pulmonary Medical History: Reports: Hx Asthma - as child, Hx Pneumonia Denies: Hx Bronchitis, Hx COPD Neurological Medical History: Reports: Hx Migraine. Denies: Hx Cerebrovascular Accident, Hx Seizures Renal/ Medical History: Reports: Hx Kidney Stones. Denies: Hx Peritoneal Dialysis Musculoskeletal Medical History: Reports Hx Arthritis - rheumatoid, Reports Hx Musculoskeletal Deformity, Reports Hx Musculoskeletal Trauma Traumatic Medical History: Reports: Hx Fractures Past Surgical History: Reports: Hx Appendectomy, Hx Section, Hx Genitourinary Surgery - bladder and ureter reimplantation, labiaplasty, Hx Kidney (Renal Surgery) - lithotripsy, Hx Orthopedic Surgery - bunion, Other - Kyphoplasty 12/2016 - Immunizations Immunizations up to date: Yes Hx Diphtheria, Pertussis, Tetanus Vaccination: Yes Review of Systems - Review of Systems Constitutional: No symptoms reported EENT: No symptoms reported Cardiovascular: No symptoms reported Respiratory: No symptoms reported Gastrointestinal: See HPI Genitourinary: No symptoms reported Female Genitourinary: No symptoms reported Musculoskeletal: No symptoms reported Skin: No symptoms reported Hematologic/Lymphatic: No symptoms reported Neurological/Psychological: No symptoms reported Physical Exam - Vital signs Vitals: Temp Pulse Resp BP Pulse Ox 98.8 F 104 H 18 117/98 H 97 06/11/19 19:04 06/11/19 19:04 06/11/19 19:04 06/11/19 19:04 06/11/19 19:04 - Notes Notes: GENERAL: Alert, interacts well. Restless and appears uncomfortable HEAD: Normocephalic, atraumatic. EYES: Pupils equal, round, and reactive to light. Extraocular movements intact. ENT: Oral mucosa dry, tongue midline. Oropharynx unremarkable. Airway patent. LUNGS: Clear to auscultation bilaterally, no wheezes, rales, or rhonchi. No respiratory distress. HEART: Regular rate and rhythm. No murmur ABDOMEN: Mildly distended abdomen. Mild diffuse tenderness, no guarding or rigidity. GENITOURINARY: Minimal erythema around the genital/groin area, no induration, fluctuance, vesicles, cellulitis, or other abnormality noted. Susan RN present during evaluation. EXTREMITIES: Moves all 4 extremities spontaneously. No edema, normal radial and dorsalis pedis pulses bilaterally. No cyanosis. BACK: no cervical, thoracic, lumbar midline tenderness. No saddle anesthesia, normal distal neurovascular exam. Moves all extremities in full range of motion. NEUROLOGICAL: Alert and oriented x3. Normal speech. Cranial nerves II through XII grossly intact. PSYCH: Normal affect, normal mood. SKIN: Warm, dry, normal turgor. No rashes or lesions noted. Fentanyl patch in place on right upper back. Course - Re-evaluation Re-evalutation: Patient is uncomfortable and restless, has some bloating of the abdomen and has some mild diffuse tenderness. Vital signs unremarkable other than borderline tachycardia. CBC, chemistry, lipase actually unremarkable. Urinalysis shows some white blood cells but this is contaminated. Patient denies any urinary symptoms. Acute abdominal series performed but this does not show evidence of obstruction, there is no free air. There is a very large amount of retained stool with a very large gaseous bubble in the location of patient's main complaint. Patient has had an appendectomy. Patient had a CAT scan very recently as well which was unremarkable. I did discuss with patient and at length. They requested an enema. After the enema patient had very large amount of results, her abdominal pain com pletely resolved. Unfortunately patient had been complaining of nausea and a mild headache during the enema, she was given Reglan, this made her very restless, this did improve with Benadryl and a small amount of Ativan. On reevaluation symptoms are resolved. I did offer to perform pelvic exam, patient is back and forth on this and eventually this was deferred. Discussed primary care follow-up and return precautions. Patient and state gratefulness and agreement. - Vital Signs Vital signs: Temp Pulse Resp BP Pulse Ox 98.4 F 78 16 124/68 100 06/12/19 03:58 06/12/19 03:58 06/12/19 03:58 06/12/19 03:58 06/12/19 03:58 - Laboratory Result Diagrams: 06/11/19 19:35 06/11/19 19:35 Laboratory results interpreted by me: 06/11/19 06/11/19 19:33 19:35 Hgb 11.7 L Hct 34.9 L Ur Leukocyte Esterase LARGE H Discharge - Discharge Clinical Impression: Skin symptom Abdominal pain Qualifiers: Abdominal location: generalized Qualified Code(s): R10.84 - Generalized abdominal pain Condition: Stable Disposition: HOME, SELF-CARE Additional Instructions: Your evaluation showed retained stool and retained pockets of flatus, fortunately this did improve with the enema. Follow-up with your primary care for additional evaluation management of your ongoing symptoms. Return if you worsen including vomiting, fever, return to worsening pain, or any other concerning or worsening symptoms. Referrals: KRISTOFER CROSS MD [Primary Care Provider] - Follow up as needed
--- NOTE | 2019-06-11 22:58 | RADIOLOGY REPORT (SQ) ---
EXAM DESCRIPTION: XR ABDOMEN SUPINE AND ERECT WITH CHEST (ABD ACUTE SERIES) COMPLETED DATE/TME: 06/11/2019 22:00 CLINICAL HISTORY: 54 years, Female, sharp abd pain/nausea, surgeries, no recent BM COMPARISON: 05/15/2019 chest x-ray NUMBER OF VIEWS: 3 TECHNIQUE: Upright chest with supine and erect views of the abdomen LIMITATIONS: None. FINDINGS: The heart size is normal. Lungs are clear. No pneumothorax. Post vertebroplasty changes. No free air under the hemidiaphragms. The bowel gas pattern is nonspecific. Surgical clips in the right lower quadrant. Osteopenia. Abundant stool in the colon. No free air. IMPRESSION: No acute cardiopulmonary process. Osteopenia. Abundant stool in the colon copyright 2010 [facility] [employer] [facility] [employer]- All Rights Reserved
[2019-06-11] MEDS ORDERED: DIPHENHYDRAMINE HCL 50 MG/ML VIAL IV ONE (23:06)
[2019-06-11] MEDS ORDERED: MINERAL OIL 30 ML UDCUP PR ONE (23:06)
[2019-06-12] MEDS ORDERED: METOCLOPRAMIDE HCL INJ/PF 10 MG/2 ML SDV IV ONE (01:06)
[2019-06-12] MEDS ORDERED: DIPHENHYDRAMINE HCL 50 MG/ML VIAL IV ONE (01:36)
[2019-06-12] MEDS ORDERED: LORAZEPAM INJ 2 MG/1 ML VIAL IV ONE (02:12)
[2019-06-12 04:00] VITALS: BP 124/68
== END 2019-06-12 03:45 | disposition home or self-care (01) ==
LOC: ER 18:58
DX: K59.00 Constipation, unspecified (principal); R10.84 Generalized abdominal pain; M25.551 Pain in right hip; R10.817 Generalized abdominal tenderness; R11.0 Nausea; R51 Headache; L53.9 Erythematous condition, unspecified; R45.1 Restlessness and agitation; I10 Essential (primary) hypertension; M54.9 Dorsalgia, unspecified; Z87.442 Personal history of urinary calculi; Z90.49 Acquired absence of other specified parts of digestive tract; Z98.890 Other specified postprocedural states; Z91.048 Other nonmedicinal substance allergy status; Z88.0 Allergy status to penicillin; Z91.040 Latex allergy status; Z88.8 Allergy status to other drugs, medicaments and biological substances; Z91.041 Radiographic dye allergy status
CPT/HCPCS: 96376; 99284; 96374; 96375; 36415; 87086; 85025; 80053; 81001; 74022; J1200; J2765; J3490; J1170; J2060